=== PATIENT | male | born 1945 | race Caucasian/White ===

== ENCOUNTER → 2021-12-22 | Outpatient (CLI) | payer MEDICARE, OTHER ==
[~2021-12-22] MED LIST: ARICEPT PO; ASPI-1197 PO; CLOP75TA14 PO; CYAN1TAB14 PO; PRAV40TA3 PO; TURM500C9 PO; ZINC PO
== END | disposition home or self-care (01) ==
LOC: SHCH 11:06
PROVIDERS: ATTEND Internal Medicine Cardiovascular Disease
DX: I70.293 Other atherosclerosis of native arteries of extremities, bilateral legs (principal); E78.5 Hyperlipidemia, unspecified; Z95.828 Presence of other vascular implants and grafts
CPT/HCPCS: 93925

== ENCOUNTER → 2022-07-23 | Outpatient (CLI) | payer MEDICARE, OTHER ==
[~2022-07-23] MED LIST changes: +CLOP-31 PO; -CLOP75TA14 PO
== END | disposition home or self-care (01) ==
LOC: SHCH 11:16
PROVIDERS: ATTEND Internal Medicine Cardiovascular Disease
DX: I08.8 Other rheumatic multiple valve diseases (principal); I48.91 Unspecified atrial fibrillation; I11.9 Hypertensive heart disease without heart failure; I77.810 Thoracic aortic ectasia; E11.9 Type 2 diabetes mellitus without complications; E78.5 Hyperlipidemia, unspecified
CPT/HCPCS: 93306

== ENCOUNTER → 2022-07-29 | Outpatient (CLI) | payer MEDICARE, OTHER | END | disposition home or self-care (01) | LOC: CANSCHCLI → RAH 10:03 | PROVIDERS: ATTEND Nurse Practitioner Family | DX: R42 Dizziness and giddiness (principal); R51.9 Headache, unspecified | CPT/HCPCS: 70551 ==

== ENCOUNTER → 2022-09-08 | Outpatient (CLI) | payer MEDICARE, OTHER | END | disposition home or self-care (01) | LOC: SLP 20:28 | PROVIDERS: ATTEND Nurse Practitioner Family | DX: G47.33 Obstructive sleep apnea (adult) (pediatric) (principal) | CPT/HCPCS: 95811 ==

== ENCOUNTER 2024-04-24 14:40 | Emergency (ER) | payer MEDICARE, OTHER ==
[~2024-04-24] VITALS: Ht 175.3 cm; Wt 90.7 kg
[2024-04-24] MEDS ORDERED: ACYC200C24 PO (15:16)
[2024-04-24] MEDS ORDERED: PRED20TA3 PO (15:16)
[2024-04-24 15:21] VITALS: BP 128/87; PULSE 94; RESP 16; TEMP 98.1; O2SAT 96
== END 2024-04-24 15:41 | disposition home or self-care (01) ==
LOC: EDH 14:40
DX: B02.9 Zoster without complications (principal); E11.9 Type 2 diabetes mellitus without complications; F03.90 Unspecified dementia, unspecified severity, without behavioral disturbance, psychotic disturbance, mood disturbance, and anxiety; I10 Essential (primary) hypertension; I48.91 Unspecified atrial fibrillation; Z79.02 Long term (current) use of antithrombotics/antiplatelets; Z79.52 Long term (current) use of systemic steroids; Z79.82 Long term (current) use of aspirin; Z79.899 Other long term (current) drug therapy; Z95.1 Presence of aortocoronary bypass graft; Z98.890 Other specified postprocedural states

== ENCOUNTER 2024-05-11 10:49 | Inpatient (IN) | payer MEDICARE, OTHER ==
[~2024-05-11] VITALS: Ht 167.6 cm; Wt 86.2 kg
[~2024-05-11 10:49] MED LIST changes: +ACYC200C24 PO; +PRED20TA3 PO
--- NOTE | 2024-05-11 11:11 | ERN ---
ED Note History of Present Illness Stated Complaint: ALTERED MENTAL STATUS AND SOB Chief Complaint: Shortness of Breath Time Seen by MD: 10:55 Dictation: PATIENT IS AN 79-YEAR-OLD MALE COMING IN FROM A LOCAL CLINIC WITH THE EMS ON HIS UNABLE TO PROVIDE ANY HISTORY. PER EMS, HE HAS HAD ALTERED MENTAL STATUS FOR ALMOST A YEAR AND WAS JUST TAKEN THE CLINIC THIS MORNING BY HIS . APPARENTLY, WHEN THE EACH OF ARRIVED AT THE CLINIC THE PHYSICIAN DECIDED TO SEND HIM DIRECTLY TO THE EMERGENCY ROOM. . HE HAS NO FEVER NO CHILLS HE DOES COMPLAIN OF SHORTNESS A BREATH AND STATES I DO NOT KNOW WHY I AM HERE BECAUSE I FEEL PRETTY GOOD. PATIENT NOTED TO BE TACHYPNEIC, DENIES CHEST PAIN BACK PAIN. NO FAMILY AT BEDSIDE. Allergies: Coded Allergies: No Known Drug Allergies (Verified Allergy, Unknown, 03/01/16) Home Meds Active Scripts Acyclovir (Acyclovir) 200 Mg Capsule, 200 MG PO 5X/DAY for 5 Days, #25 CAP Prov:KIMBERLEY TIRADO MD 04/24/24 Prednisone (Prednisone) 20 Mg Tablet, 20 MG PO DAILY for 5 Days, #5 TAB Prov:KIMBERLEY TIRADO MD 04/24/24 Reported Medications [Aricept] No Conflict Check, PO 12/04/21 [Zinc] No Conflict Check, PO DAILY 12/04/21 Clopidogrel Bisulfate (Plavix) 75 Mg Tablet, 75 MG PO DAILY, TAB 12/04/21 Pravastatin Sodium (Pravastatin Sodium) 40 Mg Tablet, 40 MG PO DAILY, TAB 12/04/21 Cyanocobalamin/FA/Pyridoxine (Folbee Tablet) 1 Each Tablet, 1 EACH PO DAILY, TAB 12/04/21 Aspirin (Aspirin) 81 Mg Tab.chew, 81 MG PO DAILY, TAB.CHEW 10/13/21 Turmeric Root Extract (Turmeric) 500 Mg Capsule, 500 MG PO DAILY, CAP 10/08/21 Past Medical History Past Medical History: A-Fib, Arthritis, Dementia, Diabetes-Type II, High Cholesterol, Hypertension Surgical History: CABG, Other RN Note Reviewed/Agreed w/PFSH: Yes Review of System Dictation CONSTITUTIONAL: NEGATIVE EXCEPT FOR HPI ALTERED MENTAL STATUS HEAD/FACE: NEGATIVE EXCEPT FOR HPI EENT: NEGATIVE EXCEPT FOR HPI RESPIRATORY: NEGATIVE EXCEPT FOR HPI SHORTNESS A BREATH GASTROINTESTINAL/ABDOMINAL: NEGATIVE EXCEPT FOR HPI GENITOURINARY: NEGATIVE EXCEPT FOR HPI MUSCULOSKELETAL: NEGATIVE EXCEPT FOR HPI INTEGUMENTARY: NEGATIVE EXCEPT FOR HPI NEUROLOGICAL/PSYCH: NEGATIVE EXCEPT FOR HPI HEMATOLOGIC/LYMPHATIC: NEGATIVE EXCEPT FOR HPI ALL SYSTEMS NEGATIVE, EXCEPT NOTED ABOVE. 13 POINT REVIEW OF SYSTEMS ASSESSED AND ALL NEGATIVE EXCEPT FOR ABOVE. Initial Vital Sign VS Vital Signs Date Time Temp Pulse Resp B/P (MAP) Pulse Ox O2 Delivery O2 Flow Rate FiO2 05/11/24 10:51 97.7 120 22 165/106 99 Room Air 0 05/11/24 11:21 21 Physical Exam Dictation VITAL SIGNS REVIEWED GENERAL APPEARANCE: ALERT, ORIENTED X 1PATIENT IS ALERT URINARY TO HIMSELF IN HIS POOR HISTORIAN IS THE PRINCIPAL HISTORIAN. HEAD AND FACE: NON-TRAUMATIC. EYES: PERRL, PINK CONJUNCTIVAS, EYELID NO TRAUMA, ANTERIOR CHAMBER WITH ARCUS SENILIS. EARS: PINNAS INTACT AND NO SIGNS OF TRAUMA OR ERYTHEMA EAR CANALS CLEAR AND NO DISCHARGE TM NO ERYTHEMA NOSE: NO DISCHARGE, NO BLEEDING. OROPHARYNX: MOUTH NORMAL, TONGUE PINK, PHARYNX CLEAR,NO ERYTHEMA, TONSILS NO EXUDATES, NO ABSCESSES NOTED, MUCOUS MEMBRANE MOIST NECK: SUPPLE, NON-TENDER, NO THYROMEGALY, NO MASSES, NO JVD, NO BRUITS BREAST:DEFERRED CHEST:NO TENDERNESS, NO CREPITUS, NO PARADOXICAL MOVEMENT, NO RETRACTIONS LUNGS:CLEAR, WELL-VENTILATED, SYMMETRIC, NO RALES, NO WHEEZING, NO RHONCHI, NO STRIDOR, MILD TACHYPNEA NOTED WITHOUT RETRACTIONS, BILATERAL BREATH SOUNDS CLEAR DIMINISHED IN THE BASES. HEART: REGULAR RATE, REGULAR RHYTHM, NO MURMUR, NO GALLOPS VASCULAR: NO PERIPHERAL EDEMA, ABDOMEN: SOFT, POSITIVE BOWEL SOUNDS, NONDISTENDED, NO GUARDING, NONTENDER, NO REBOUND, NO MASSES NO HEPATOMEGALY, NO SPLENOMEGALY, NO NELSON'S SIGN, NO HERNIAS. RECTAL: DEFERRED GENITAL: DEFERRED NEUROLOGICAL: NORMAL SPEECH, MOTOR FUNCTION INTACT, SENSORY FUNCTION INTACT MUSCULOSKELETAL: NECK NONTENDER, FULL RANGE OF MOTION, BACK NONTENDER, FULL RANGE OF MOTION, EXTREMITIES: NONTENDER, FULL RANGE OF MOTION SKIN: COLOR PINK, DRY, NO TURGOR, NO RASH, NO LACERATIONS, NO ABRASIONS, NO CONTUSIONS. LYMPHATIC: DEFERRED Results (Laboratory/Radiology) Laboratory/Radiology Laboratory Tests Test 05/11/24 11:11 05/11/24 11:13 05/11/24 11:35 White Blood Count 9.7 K/uL (4.8-10.8) Red Blood Count 5.39 MIL/uL (4.50-6.20) Hemoglobin 16.1 g/dL (14.0-18.0) Hematocrit 47.6 % (42-54) Mean Corpuscular Volume 88.3 fL (79-99) Mean Corpuscular Hemoglobin 29.9 pg (27.0-33.0) Mean Corpuscular Hemoglobin Concent 33.8 g/dL (32.0-36.0) Red Cell Distribution Width 13.1 % (11.0-15.5) Platelet Count 258 K/uL (130-400) Mean Platelet Volume 9.3 fL (7.5-10.5) Immature Granulocyte % (Auto) 0.3 % (0-1) Neutrophils (%) (Auto) 71.6 % (40.0-77.0) Lymphocytes (%) (Auto) 19.9 % (21.0-51.0) L Monocytes (%) (Auto) 6.2 % (3.0-13.0) Eosinophils (%) (Auto) 1.5 % (0.0-8.0) Basophils (%) (Auto) 0.5 % (0.0-5.0) Neutrophils # (Auto) 6.9 K/uL (1.8-7.7) Lymphocytes # (Auto) 1.9 K/uL (1.0-4.8) Monocytes # (Auto) 0.6 K/uL (0.1-1.0) Eosinophils # (Auto) 0.14 K/uL (0.00-0.70) Basophils # (Auto) 0.05 K/uL (0.00-0.20) Absolute Immature Granulocyte (auto 0.03 K/uL (0-1) Nucleated Red Blood Cells 0.0 % (0.0-0.19) Sodium Level 140 mmol/L (136-145) Potassium Level 3.8 mmol/L (3.5-5.1) Chloride Level 102 mmol/L (101-111) Carbon Dioxide Level 26 mmol/L (21-32) Blood Urea Nitrogen 14 mg/dL (7-18) Creatinine 1.2 mg/dL (0.5-1.3) Glomerular Filtration Rate Calc 61 mL/min (>90) Random Glucose 185 mg/dL (70-105) H Lactic Acid Level 3.6 mmol/L (0.8-2.5) H Total Calcium 9.2 mg/dL (8.5-10.1) Total Creatine Kinase 128 U/L (21-232) Troponin I High Sensitivity 34 ng/L (4-75) SARS-CoV-2 Antigen (Rapid) PRESUMPTIVE NEGATIVE Urine Color YELLOW (YELLOW) Urine Appearance CLEAR (CLEAR) Urine pH 7.0 (5.0-8.0) Urine Specific [place] 1.027 (1.001-1.031) Urine Protein 20 mg/dL (NEGATIVE) H Urine Glucose (UA) TRACE mg/dL (NEGATIVE) H Urine Ketones 60 mg/dL (NEGATIVE) H Urine Occult Blood NEGATIVE (NEGATIVE) Urine Nitrate NEGATIVE (NEGATIVE) Urine Bilirubin NEGATIVE mg/dL (NEGATIVE) Urine Urobilinogen 4.0 mg/dL (0.2-1.0) H Urine Leukocyte Esterase NEGATIVE [place]/uL Urine RBC 2-5 /HPF (0-1) H Urine WBC 0-1 /HPF (0-1) Urine Bacteria None /HPF (None Seen) REASON: ALTERED MENTAL STATUS, EIGHT MONTH RULE OUT LESION/MASS ORDERING PHYSICIAN: PERLA TRUONG NP PROCEDURE: HEAD WO - CT HEAD/BRAIN W/O CONTRAST CT HEAD/BRAIN W/O CONTRAST HISTORY: Altered mental status COMPARISON: None TECHNIQUE: Multiple sequential axial images of the head were obtained from the base of the skull through vertex. Patient was not given contrast through intravenous route. FINDINGS: The ventricles and extraventricular CSF spaces are dilated consistent with cerebral atrophy. Nonspecific white matter changes seen. There is no midline shift, mass effect or herniation. No acute intracranial bleed is seen. Visualized portion of the paranasal sinuses are grossly within normal limits. 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 IMPRESSION: 1. No acute intracranial bleed is seen. 2. Atrophy with white matter changes. CHEST 1VW HISTORY: Shortness of breath COMPARISON: 05/03/2024 FINDINGS: A frontal projection of the chest was obtained. Mild bilateral pulmonary infiltrates are seen may be related to mild pulmonary vascular congestion with possible superimposed pneumonitis. The heart is borderline enlarged. Degenerative changes are seen. No evidence of aortic calcification is seen. IMPRESSION: 1. Mild bilateral pulmonary infiltrates are seen may be related to mild pulmonary vascular congestion with possible superimposed pneumonitis. Labs Reviewed?: Yes EKG Comment: EKG IS ATRIAL FIBRILLATION VENTRICULAR RATE 89 NO AXIS DEVIATION ED Course ED Course Orders Procedure Category Date Status Time Iv Insertion CPOE 05/11/24 Transmitted 10:56 Pulse Ox(Continuous) RT 05/11/24 Transmitted 10:56 Vital Signs Per CPOE 05/11/24 Transmitted Routine 10:56 12 Lead Ekg Tracing- EKG 05/11/24 Logged Technical 10:56 Cbc With Differential LAB 05/11/24 Complete 10:56 Blood Cult QUIANA 05/11/24 In Process 10:56 Urinalysis Profile LAB 05/11/24 Complete 10:56 Culture Urine QUIANA 05/11/24 In Process 10:56 Creatine Kinase, Total LAB 05/11/24 Complete 10:56 Troponin I High LAB 05/11/24 Complete Sensitivity 10:56 Lactic Acid LAB 05/11/24 Complete 10:56 Basic Metabolic Panel LAB 05/11/24 Complete 10:56 Covid19 (Sars Antigen LAB 05/11/24 Complete Rapid) 11:08 Ct Head/Brain W/O CT 05/11/24 Resulted Contrast 11:16 Bladder Scan CPOE 05/11/24 Transmitted 11:57 0.9%Nacl 1000ml (Ns PHA 05/11/24 In Process 1000ml) 12:30 Ceftriaxone 2gm Vial PHA 05/11/24 Complete (Rocephin 2gm Inj) 12:30 Chest 1vw RAD 05/11/24 Resulted 12:42 Azithromycin 500mg+Ns PHA 05/11/24 Complete 250ml (Azithromyci 13:30 Albuterol 0.083% PHA 05/11/24 Complete 2.5mg/3ml (Proventil 14:00 Azithromycin 500mg+Ns PHA 05/11/24 In Process 250ml (Azithromyci 14:00 Current Medications Medications (Trade) Dose Ordered Sig/Rere Route PRN Reason Start Time Stop Time Status Last Admin Dose Admin Albuterol Sulfate (Proventil 0.083% 2.5mg/3ml) 2.5 mg ONCE ONCE IH 05/11/24 14:00 05/11/24 14:01 DC 05/11/24 13:56 Azithromycin 250 ml @ 250 mls/hr ONCE ONCE IVPB 05/11/24 14:00 05/11/24 14:59 05/11/24 13:50 Azithromycin 250 ml @ 250 mls/hr Q24H IVPB 05/11/24 13:30 05/11/24 13:39 DC Ceftriaxone Sodium (Rocephin 2gm Inj) 2 gm ONCE ONCE IVPB 05/11/24 12:30 05/11/24 12:31 DC 05/11/24 12:56 Sodium Chloride 2,682 ml @ 894 mls/hr ONCE ONCE IV 05/11/24 12:30 05/11/24 15:29 05/11/24 12:56 Vital Signs Date Time Temp Pulse Resp B/P (MAP) Pulse Ox O2 Delivery O2 Flow Rate FiO2 05/11/24 13:56 95 20 05/11/24 11:21 102 20 168/74 100 Room Air* 0 21 05/11/24 10:51 97.7 120 22 165/106 99 Room Air 0 ELEVEN 30, PATIENT'S AT BEDSIDE AND STATES THAT PATIENT HAS NOT BEEN GOING TO HIS DOCTOR FOR OVER A YEAR ACCEPT WHEN HE HAD SHINGLES TWO WEEKS AGO. SHE ST ATES HE ALSO QUIT TAKING HIS DIABETIC MEDICATIONS, ARICEPT HYPERTENSION ETC. MEDICATIONS A YEAR AND A HALF AGO. SHE STATES HE HAS BEEN ACTING VERY ERRATICALLY, SOLD A TRUCK THAT THEY OWNED WITHOUT CONSULTING HER HAS BEEN NOT ABLE TO URINATE FREQUENTLY AND HAS BEEN ACTING VERY STRANGE NOT RECOGNIZING HER, NOT RECOGNIZE WHERE HE LIVES. SHE STATES HE HAS HAD NO FEVER NO CHILLS LAST KNOWN BLOOD SUGAR WAS 198. 1335, PATIENT HEMODYNAMICALLY STABLE WAS GIVEN NORMAL SALINE 30 PER KILOS FOR LACTIC ACID 3.6. PATIENT HAS BILATERAL PNEUMONITIS WAS GIVEN ROCEPHIN2 G AND WE WILL BE GIVEN AZITHROMYCIN 500 MG. IN ADDITION HE WILL BE ADMITTED TO THE HOSPITAL. CT OF THE HEAD WAS NEGATIVE FOURTEEN 30 SPOKE WITH , REVIEWED CHEST X-RAY EKG LABS URINE AND TREATMENT FOR LACTIC ACID 3.6. HE AGREED TO ADMIT PATIENT FOR OBSERVATION AT THIS TIME AND WE WILL SEE PATIENT HEART Score Response (Comments) Value EKG: Repolarization changes 1 Age: > 65yrs (+2) 2 Risk Factors: 3+ risk factors (+2) 2 Initial Troponin: Normal limit (0) 0 Total 5 Medical Decision Making MDM MDM: DIFFERENTIAL DIAGNOSIS: ALTERED MENTAL STATUS/NEURO LESION/UTI/PNEUMONIA/HYPOXEMIA/DEHYDRATION/ELECTROLYTE IMBALANCE/UNCONTROLLED DIABETES/MEDICAL NONCOMPLIANCE RATIONALE: TESTS CONSIDERED AND ORDERED SECONDARY TO SHARED DECISION MAKING INCLUDE: LABS, ECG AND RADIOLOGY PREVIOUS OUTSIDE RECORDS REVIEWED: OLD ER VISITS. REVIEW MEDICATIONS-PER MEDICATION RECONCILIATION SEE NURSE'S NOTES NEED FOR HOSPITALIZATION: PATIENT DOES MEET CRITERIA FOR HOSPITALIZATION. PATIENT WILL NEED TREATMENT FOR BILATERAL PNEUMONITIS AND SEPSIS. RESPIRATORY SUPPORT NEED FOR EMERGENCY MAJOR/MINOR SURGERY: NO THERE ARE NO SOCIAL CONCERNS WITH THIS PATIENT. PATIENT NONCOMPLIANT WITH MEDICATIONS AND TREATMENTS PRESCRIPTION DRUG MANAGEMENT PRESCRIPTIONS WILL INCLUDE SYMPTOMATIC CARE PATIENT'S PRIOR EXTERNAL MEDICAL RECORDS FROM OTHER ER VISITS WERE REVIEWED BY ME INDICATED. PRIOR TESTING AND RESULTS FROM PREVIOUS VISITS WERE REVIEWED. PRIOR TESTS WERE TAKEN INTO ACCOUNT WITH MEDICAL DECISION MAKING AND RESOURCE UTILIZATION, INDEPENDENT HISTORIAN/HISTORIANS WERE USED TO OBTAIN COMPLETE MEDICAL HISTORY. I INDEPENDENTLY INTERPRETED THE TEST THAT WERE PERFORMED, RESULTS WERE REVIEWED BY ME AND CONSIDERED FINDINGS ON RADIOLOGY IF ORDERED. MEDICAL MANAGEMENT AND EXAMINATION INTERPRETATION DISCUSSIONS WERE HAD BY ME WITH OTHER QUALIFIED HEALTHCARE PROFESSIONALS INDICATED FOR THE PATIENT'S CARE. DX & DISP Disposition: Inpatient Departure Impression: Primary Impression: Bilateral pneumonia Additional Impressions: Altered mental status, Uncontrolled diabetes mellitus, Medical non-compliance, Dementia, Sepsis, Atrial fibrillation with controlled ventricular response Condition: Stable Referrals: AZUCENA WILKINS (PCP) Time of Disposition: 13:39 I have reviewed the case, and I agree with, Diagnosis and Plan PERLA TRUONG NP May 11, 2024 11:11
[2024-05-11 11:24] LABS: BASOPHILS # (AUTO) 0.05 K/uL (0.00-0.20); BASOPHILS % (AUTO) 0.5 % (0.0-5.0); EOSINOPHILS # (AUTO) 0.14 K/uL (0.00-0.70); EOSINOPHILS % (AUTO) 1.5 % (0.0-8.0); HEMATOCRIT 47.6 % (42-54); IMMATURE GRANULOCYTE ABSOLUTE 0.03 K/uL (0-1); LYMPHOCYTES # (AUTO) 1.9 K/uL (1.0-4.8); LYMPHOCYTES % (AUTO) 19.9 % (21.0-51.0); MEAN CORPUSCULAR HEMOGLOBIN 29.9 pg (27.0-33.0); MEAN CORPUSCULAR HGB CONC 33.8 g/dL (32.0-36.0); MEAN CORPUSCULAR VOLUME 88.3 fL (79-99); MONOCYTES # (AUTO) 0.6 K/uL (0.1-1.0); MONOCYTES % (AUTO) 6.2 % (3.0-13.0); NEUTROPHILS # (AUTO) 6.9 K/uL (1.8-7.7); NEUTROPHILS % (AUTO) 71.6 % (40.0-77.0); PLATELET COUNT (AUTO) 258 K/uL (130-400); RED BLOOD CELL COUNT(AUTO) 5.39 MIL/uL (4.50-6.20); RED CELL DISTRIBUTION WIDTH 13.1 % (11.0-15.5); WHITE BLOOD COUNT (AUTO) 9.7 K/uL (4.8-10.8)
[2024-05-11 11:30] LABS: CREATININE 1.2 mg/dL (0.5-1.3); POTASSIUM 3.8 mmol/L (3.5-5.1)
[2024-05-11 11:56] LABS: APPEARANCE,URINE CLEAR (CLEAR); BILIRUBIN,URINE NEGATIVE (NEGATIVE); COLOR,URINE YELLOW (YELLOW); GLUCOSE, URINE (UA) TRACE mg/dL (NEGATIVE); KETONES,URINE 60 mg/dL (NEGATIVE); LEUKOCYTE ESTERASE ,URINE NEGATIVE Leu/uL (NEGATIVE); NITRATE,URINE NEGATIVE (NEGATIVE); OCCULT BLOOD,URINE NEGATIVE (NEGATIVE); PROTEIN,URINE 20 mg/dL (NEGATIVE)
[2024-05-11 12:04] LABS: ADD UA MICROSCOPIC YES
[2024-05-11 12:15] LABS: MUCUS,URINE RARE LPF (None Seen); WBC,URINE 0-1 /HPF (0-1)
--- NOTE | 2024-05-11 12:38 | HMCIMG ---
CT HEAD/BRAIN W/O CONTRAST HISTORY: Altered mental status COMPARISON: None TECHNIQUE: Multiple sequential axial images of the head were obtained from the base of the skull through vertex. Patient was not given contrast through intravenous route. FINDINGS: The ventricles and extraventricular CSF spaces are dilated consistent with cerebral atrophy. Nonspecific white matter changes seen. There is no midline shift, mass effect or herniation. No acute intracranial bleed is seen. Visualized portion of the paranasal sinuses are grossly within normal limits. 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 IMPRESSION: 1. No acute intracranial bleed is seen. 2. Atrophy with white matter changes. CT was performed with one or more following dose reduction techniques: automated exposure control, adjustment of the mA and kv according to patient's size, or use of a iterative reconstruction technique.
[2024-05-11] MEDS: CEFTRIAXONE 2GM VIAL IVPB ONE (12:56)
[2024-05-11] MEDS: [UNRECOGNIZED DRUG - OTHER] IV ONE (12:56)
[2024-05-11] MEDS ORDERED: AZITHROMYCIN 500MG+NS 250ML 250 ML IVPB SCH (13:30)
--- NOTE | 2024-05-11 13:33 | HMCIMG ---
CHEST 1VW HISTORY: Shortness of breath COMPARISON: 12/04/2021 FINDINGS: A frontal projection of the chest was obtained. No acute pulmonary infiltrates is seen. Poststernotomy changes are seen. The heart is enlarged. Degenerative changes of the thoracolumbar spine are present. Aortic calcifications are seen. IMPRESSION: 1. No acute pulmonary infiltrate is seen.
[2024-05-11] MEDS: AZITHROMYCIN 500MG+NS 250ML 250 ML IVPB ONE (13:49)
[2024-05-11 13:56] VITALS: PULSE 95; RESP 20
[2024-05-11] MEDS: ALBUTEROL 0.083% 2.5 MG/3 ML INH IH ONE (13:56)
--- NOTE | 2024-05-11 15:06 | BSKYNEURO ---
[facility] Procedure Note [facility] Consult Consult [facility] Note # Demographics Consult Type: General Neurology Patient Location: Emergency Room First Name: NAVI Malagon Last Name: SAIMA HAQ Date of : 1945 Age: 79 Gender: Male Facility: [facility] Time of Initial Page (Central Time): 05/11/2024, 14:56 Time of Return Call (Central Time): 05/11/2024, 14:56 # HPI History: COnfusion and worse ams x 2-3 months. Progressive dementia last few eeks/months. No neck stiffness or fevers reported. No seizures. Afib, not on noac # Scores Level of Consciousness 1a: [0] = Alert; keenly responsive LOC Questions 1b: [1] = Answers one correctly LOC Commands 1c: [0] = Performs both tasks correctly Best Gaze 2: [0] = Normal Visual 3: [0] = No visual loss Facial Palsy 4: [0] = Normal symmetrical movements Motor Arm Left 5a: [0] = No drift Motor Arm Right 5b: [0] = No drift Motor Leg Left 6a: [0] = No drift Motor Leg Right 6b: [0] = No drift Limb Ataxia 7: [0] = Absent Sensory 8: [0] = Normal Best Language 9: [0] = No aphasia Dysarthria 10: [0] = Normal Extinction and Inattention 11: [0] = No abnormality NIHSS Total: 1 # Data Head CT: - no bleed - per radiologist read # Assessment Impression: - Altered Mental Status STart with mri brain wwo and toxometabolic/infectious workup. If no etiology identified then consider LP - to investigate infections or inflammatory picture or other causes of rapidly progressive dementia # Plan Labs: - Ammonia - B12 - TSH - ua - urine drug screen tpo antibody Imaging: (urgency: routine): - MRI Brain with AND without contrast Diagnostic Test: - EEG Other: - If patient has any neurological deterioration please call me back immediately - I have discussed my recommendations with the referring provider - would not pursue stroke work-up if MRI is negative # Logistics Attestation of consult completion: The patient is located at: [facility]. Facility staff participated in the visit. I performed this telemedicine visit from my offsite office utilizing interactive 2 way audio and visual telecommunication technology. Total time spent in telemedicine encounter: I spent 21 minutes reviewing clinical data and/or imaging, obtaining history, examining the patient, communicating with the onsite care team, and in preparation of this report. # Demographics First Name: NAVI Malagon Last Name: SAIMA HAQ Facility: [facility] Electronically signed at 05/11/2024 15:05 (Central Time) by Daniel Barbosa MD Neuro Consult Order placed for: Yes VINCENZO BARBOSA MD May 11, 2024 15:06
--- NOTE | 2024-05-11 15:18 | HP ---
[facility] HISTORY [facility] PHYSICAL Date of Service: May 11, 2024 Time of Service: 15:18 HISTORY OF PRESENT ILLNESS: DATE OF SERVICE: 05/11/2024 This 79-year-old male with past medical history of dementia, history of atrial fibrillation, hypertension, hyperlipidemia who presented to the hospital secondary to shortness of breath and confusion. Patient is alert oriented x2 and his is present at bedside. Per patient was diagnosed with dementia more than a year ago. She has noted increasing confusion at home for the past 2-3 weeks. has also noted increasing shortness a breath with associated cough and sputum production patient currently has not been taking any medications and currently is not taking Eliquis at home. He sees Dr. Cannon who is his primary care physician. She also sees Dr. Edge who is his primary florist. Patient was going to follow up with him for possible aneurysm repair in the future. He currently denies any fever but complains of chills. He denied any chest pain, syncopal episode. Does complain of abdominal pain which is generalized. He is having regular bowel movements with last BM today. He denied any melena, hematochezia, hematemesis. Secondary to increasing confusion patient was brought to the ER for further evaluation. Patient recently was diagnosed with shingles around two weeks ago and was on acyclovir for treatment Labs in the ED were notable for white count of 9.7, hemoglobin was 16.1, platelet count was 258 K, sodium was 140, potassium was 3.8, creatinine is 1.2, lactic acid was 3.6, troponin was negative x1, BNP was 91 Chest x-ray did not show any acute infiltrates. REVIEW OF SYSTEMS CONSTITUTIONAL: Denies fevers, or night sweats. No unintentional weight loss reported. Positive for chills NEUROLOGICAL: Denies headache, amaurosis fugax, motor weakness, sensory deficit, vertigo/spinning sensation, gait abnormalities, or tremors. ENT: No hearing loss, otalgia, otorrhea, rhinitis, rhinorrhea, hoarseness, or sore throat. CARDIOVASCULAR: Denies any exertional angina, dyspnea on exertion, orthopnea, paroxysmal nocturnal dyspnea, palpitations, life-threatening arrhythmias, claudication. PULMONARY: Positive for shortness of breath, cough, sputum production SLEEP: Denies morning headaches, daytime somnolence or napping. Denies difficulty falling asleep, staying asleep, waking from sleep. Denies knowledge of snoring. GASTROINTESTINAL: Positive for abdominal pain. Denied any nausea, vomiting, melena, hematochezia, hematemesis. GENITOURINARY: Denies frequency, urgency, nocturia, hematuria or incontinence (Storage/Irritative symptoms.) Low urinary stream, straining to void, urinary intermittency or hesitancy, splitting of the voiding stream, terminal dribbling. ENDOCRINOLOGIC: Denies polyuria, polydipsia, polyphagia or heat/cold intolerances. HEMATOLOGIC: Denies thrombophilia/previous clots, or coagulopathy/bleeding disorders. ONCOLOGIC: Denies personal history of malignancy. DERMATOLOGIC: Denies rashes or pruritus. PSYCHIATRIC: Denies any suicidal or homicidal ideation. Denies hallucinations. PAST MEDICAL HISTORY: Dementia, history of atrial fibrillation, hypertension, hyperlipidemia (not taking any medications) PAST SURGICAL HISTORY: History of CABG PAST SOCIAL HISTORY: Denied smoking, alcohol, drug use FAMILY HISTORY: Denied any pertinent family history Coded Allergies: No Known Drug Allergies (Verified Allergy, Unknown, 03/01/16) PHYSICAL EXAM GENERAL APPEARANCE: The patient is awake, alert, and oriented, in no acute cardiopulmonary distress. NEUROLOGICAL: Cranial nerves II-XII grossly intact. Motor is 5/5 in bilateral upper and lower extremities proximal to distal. No sensory deficits. HEENT: Face is symmetric. Pupils are equal and reactive. Extraocular movements are intact. NECK: Supple. No JVD. No thyromegaly. No submental, submandibular, pre- /postauricular, occipital or supraclavicular lymphadenopathy. CHEST: Normal chest expansion. No Telemetry. LUNGS: Absence of any rales, rhonchi or any wheezing. CARDIOVASCULAR: Regular. S1 and S2 normal. No appreciable rubs, murmurs or gallops. ABDOMEN: Soft, nontender, and nondistended. There is no rebound, voluntary guarding, or rigidity. : Deferred. No [place]. EXTREMITIES: Non-edematous and not cyanotic. No clubbing. Good capillary refill. SKIN: No skin breakdown. Vital Sign (Last 24 Hours) 05/11/24 05/11/24 05/11/24 10:51 11:21 13:56 Temp 97.7 Pulse 95 Resp 20 B/P (MAP) 168/74 Pulse Ox 100 O2 Delivery Room Air* O2 Flow Rate 0 FiO2 21 LABS: Laboratory: Test 05/11/24 11:35 05/11/24 11:13 05/11/24 11:11 Range/Units Urine Color YELLOW YELLOW Urine Appearance CLEAR CLEAR Urine pH 7.0 5.0-8.0 Urine Specific [place] 1.027 1.001-1.031 Urine Protein 20 H NEGATIVE mg/dL Urine Glucose (UA) TRACE H NEGATIVE mg/dL Urine Ketones 60 H NEGATIVE mg/dL Urine Occult Blood NEGATIVE NEGATIVE Urine Nitrate NEGATIVE NEGATIVE Urine Bilirubin NEGATIVE NEGATIVE mg/dL Urine Urobilinogen 4.0 H 0.2-1.0 mg/dL Urine Leukocyte Esterase NEGATIVE NEGATIVE [place]/uL Urine RBC 2-5 H 0-1 /HPF Urine WBC 0-1 0-1 /HPF Urine Bacteria None None Seen /HPF SARS-CoV-2 Antigen (Rapid) PRESUMPTIVE NEGATIVE NEGATIVE White Blood Count 9.7 4.8-10.8 K/uL Red Blood Count 5.39 4.50-6.20 MIL/uL Hemoglobin 16.1 14.0-18.0 g/dL Hematocrit 47.6 42-54 % Mean Corpuscular Volume 88.3 79-99 fL Mean Corpuscular Hemoglobin 29.9 27.0-33.0 pg Mean Corpuscular Hemoglobin Concent 33.8 32.0-36.0 g/dL Red Cell Distribution Width 13.1 11.0-15.5 % Platelet Count 258 130-400 K/uL Mean Platelet Volume 9.3 7.5-10.5 fL Immature Granulocyte % (Auto) 0.3 0-1 % Neutrophils (%) (Auto) 71.6 40.0-77.0 % Lymphocytes (%) (Auto) 19.9 L 21.0-51.0 % Monocytes (%) (Auto) 6.2 3.0-13.0 % Eosinophils (%) (Auto) 1.5 0.0-8.0 % Basophils (%) (Auto) 0.5 0.0-5.0 % Neutrophils # (Auto) 6.9 1.8-7.7 K/uL Lymphocytes # (Auto) 1.9 1.0-4.8 K/uL Monocytes # (Auto) 0.6 0.1-1.0 K/uL Eosinophils # (Auto) 0.14 0.00-0.70 K/uL Basophils # (Auto) 0.05 0.00-0.20 K/uL Absolute Immature Granulocyte (auto 0.03 0-1 K/uL Nucleated Red Blood Cells 0.0 0.0-0.19 % Sodium Level 140 136-145 mmol/L Potassium Level 3.8 3.5-5.1 mmol/L Chloride Level 102 101-111 mmol/L Carbon Dioxide Level 26 21-32 mmol/L Blood Urea Nitrogen 14 7-18 mg/dL Creatinine 1.2 0.5-1.3 mg/dL Glomerular Filtration Rate Calc 61 >90 mL/min Random Glucose 185 H 70-105 mg/dL Lactic Acid Level 3.6 H 0.8-2.5 mmol/L Total Calcium 9.2 8.5-10.1 mg/dL Total Creatine Kinase 128 21-232 U/L Troponin I High Sensitivity 34 4-75 ng/L Current Medications Medications (Trade) Dose Ordered Sig/Rere Route PRN Reason Start Time Stop Time Status Last Admin Dose Admin Acetaminophen (TYLenol 500MG TAB) 500 mg Q6H PRN PO MILD PAIN (1-3) 05/11/24 15:30 06/10/24 15:29 Albuterol (DUOneb) 1 UDVIAL Q6H PRN IH SHORTNESS OF BREATH 05/11/24 15:30 06/10/24 15:29 Azithromycin 250 ml @ 250 mls/hr Q24H IVPB 05/11/24 13:30 05/11/24 13:39 DC Ceftriaxone Sodium (Rocephin 2gm Inj) 2 gm Q24H IVPB 05/12/24 09:00 05/22/24 08:59 Famotidine (Pepcid 20mg Vial) 20 mg Q24H IV 05/11/24 21:00 06/10/24 20:59 Sodium Chloride 1,000 ml @ 75 mls/hr [id number] IV 05/11/24 15:30 06/10/24 15:29 DIAGNOSTICS / RADIOLOGY: [ ] ASSESSMENT: AMS secondary to infectious versus metabolic encephalopathy Dementia Possible sepsis rule out Lactic acidosis Community-acquired pneumonia versus URI rule out Respiratory alkalosis Medical noncompliance History of atrial fibrillation not on anticoagulation Hypertension not on medications Hyperlipidemia not on medications History of aneurysm PLAN: - patient to be admitted to medical-surgical unit with telemetry -in reference to AMS with associated dementia. We will request consultation with tele neurology. We will check b12, TSH. Additionally patient has not been taking Eliquis. We will obtain a brain MRI. -reference to possible sepsis. Patient will continue on Rocephin and azithromycin. We will obtain a CT abdomen pelvis. Obtain a UA and follow up on blood cultures -in trends to respiratory alkalosis this is likely in setting of his underlying dementia. We will request consultation with pulmonology -patient to be started on gentle hydration -start patient on metoprolol 25 mg b.i.d. -further orders per hospitalization course. Advanced Care Planning Which of the following were discussed: Hospice care: Yes __ No _x_ Therapeutic options: Yes __ No __ Advance directives: Yes _x_ No __ Other discussions: Patient has advanced directives for DNR/DNI. Code status was discussed with patient and patient's power of director of product design who is his . Patient and have decided on DNR/DNI. Paperwork was signed by patient's POA. Discussed with who?: patient and (Patient, family or surrogates) Voluntary nature of this service was explained to the patient? Yes _x_ No __ Amount of time spent: 25 minutes ZAKI Nieto MD, MD May 11, 2024 15:18
[2024-05-11] MEDS ORDERED: IpraTROPium/alBUTERol SULFATE 3 ML SOLUTION IH PRN (15:30)
[2024-05-11] MEDS: 0.9%NACL 1000ML 1,000 ML IV SCH (15:38)
[2024-05-11] MEDS: LORazepam 0.5 MG TABLET PO ONE (15:40)
[2024-05-11 15:48] LABS: INFLUENZA TYPE A Negative For Type A (NEGATIVE); INFLUENZA TYPE B Negative For Type B (NEGATIVE)
[2024-05-11 15:57] LABS: ABG BASE EXCESS -1.3 mmol/L (-2.0-3.0); ABG HCO3 16.9 mmol/L (21.0-28.0); ABG OXYGEN SATURATION 98.4 % (94.0-98.0); ABG PCO2 17 mmHg (35-48); ABG PH 7.606 (7.350-7.450); CARBON MONOXIDE 0.2 % (0.5-1.5); HHb 1.6; PO2, ARTERIAL BG 104.2 mmHg (83.0-108.0); VENT MODE, BG RA (ROOM AIR)
--- NOTE | 2024-05-11 16:32 | HMCIMG ---
CT ABDOMEN/PELVIS W/O CONTRAST HISTORY: Abdominal pain COMPARISON: None TECHNIQUE: Multiple sequential axial images of the abdomen and pelvis were obtained from the dome of the diaphragm through symphysis pubis. Patient was not given contrast through intravenous route. Oral contrast was not given. FINDINGS: No pleural effusion is seen bilaterally. There is no evidence of parenchymal disease or pulmonary nodule of the visualized lower lungs. Degenerative changes of the thoracolumbar spine are present. The heart is not enlarged. Liver is enlarged measuring 18 cm. Gallbladder is distended. There are multiple left renal cysts with the largest measuring 5 cm. The liver, spleen, adrenal glands and pancreas are unremarkable. There is no evidence of hydronephrosis bilaterally. No evidence of renal stone is seen. There is diverticulosis. Fecal material is seen in the colon. There is diverticulosis. There are normal size retroperitoneal and mesenteric lymph nodes. No ascites is seen. Atherosclerotic changes are present. Pelvic sidewalls are symmetric bilaterally. Bladder is poorly distended with wall thickening. IMPRESSION: 1. Distended gallbladder. Multiple renal cysts mostly on the left. Diverticulosis. CT was performed with one or more following dose reduction techniques: automated exposure control, adjustment of the mA and kv according to patient's size, or use of a iterative reconstruction technique.
[2024-05-11] MEDS: HALOPERIDOL INJ 5 MG/ML VIAL ONE (17:27)
[2024-05-11] MEDS: HALOPERIDOL INJ 5 MG/ML VIAL IM SCH (17:27)
[2024-05-11] MEDS: SODIUM CHLORIDE 3% FOR INHALATION 4 ML/AMP VIAL.NEB IH ONE (18:26)
--- NOTE | 2024-05-11 19:14 | HMCIMG ---
ULTRASOUND ABDOMEN LIMITED INDICATION: Right upper abdominal pain COMPARISON: None FINDINGS: The right hepatic lobe appears grossly normal without any focal lesion demonstrated. Left hepatic lobe is obscured by overlying bowel gas. Main portal vein is patent, and normal direction of vascular flow demonstrated. Common bile duct is obscured by overlying bowel gas. No evidence for calculi, sludge or pericholecystic fluid. No sonographic Zhang's sign elicited by the ultrasound flaker operator. Wall thickness measures 3.0 mm. Pancreas is obscured by overlying bowel gas. The right kidney measures 10.2 x 6.4 x 5.0 cm,and is normal in echogenicity, without evidence for hydronephrosis.No shadowing stones demonstrated. No free fluid demonstrated. IMPRESSION: Limitations as reported. No acute right upper abdominal abnormality noted within the limits of this exam.
--- NOTE | 2024-05-11 19:27 | CONS ---
[facility] CONSULTATION NOTE Date Patient Seen: May 11, 2024 Time of Visit: 19:27 Supervising Physician: Dr. Cooley Reason for Consultation: "Respiratory alkalosis" Primary Care Physician: Ravi Cannon Attending providers: [facility] Hospitalist Team Outpatient Specialists: Dr. Edge, clinical systems analyst. 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 Schuler is a 79-year-old male with past medical history of dementia, history of atrial fibrillation, hypertension, hyperlipidemia who presented to the hospital secondary to shortness of breath and worsening confusion over the past 2-3 weeks. Patient is alert oriented x2. Per patient was diagnosed with dementia more than a year ago. has also noted increasing shortness a breath with associated cough and sputum production. The patient currently has not been taking any medications and currently is not taking Eliquis at home. The patient reports chills. The patient denied any fever,chest pain, syncopal episode, abdominal pain which is generalized. He is having regular bowel movements with last BM today. He denied any melena, hematochezia, hematemesis. Secondary to increasing confusion patient was brought to the ER for further evaluation. Patient recently was diagnosed with shingles around two weeks ago and was on acyclovir for treatment Labs in the ED were notable for white count of 9.7, hemoglobin was 16.1, platelet count was 258 K, sodium was 140, potassium was 3.8, creatinine is 1.2, lactic acid was 3.6, troponin was negative x1, BNP was 91. Chest x-ray did not show any acute infiltrates. CT chest PE protocol: Negative for PE. Degener ative changes of the spine. Fatty changes of the liver are noted. Gallbladder is distended. There are left renal cysts with the largest measuring 4.3 cm. The provider request patient be admitted with the diagnosis of altered mental status, Uncontrolled diabetes mellitus, Medical non-compliance, Dementia, Sepsis, Atrial fibrillation with controlled ventricular response. The catalyst admitted this team with BI team as pulmonary consults for respiratory alkalosis. PAST MEDICAL HISTORY: Dementia, history of atrial fibrillation, hypertension, hyperlipidemia (not taking any medications) PAST SURGICAL HISTORY: History of CABG PAST SOCIAL HISTORY: Denied smoking, alcohol, drug use FAMILY HISTORY: Denied any pertinent family history Coded Allergies: No Known Drug Allergies (Verified Allergy, Unknown, 03/01/16) REVIEW OF SYSTEMS: Unable to obtain ROS from the patient due to AMS PHYSICAL EXAM: GENERAL: alert, weak, awake oriented x 1 HEENT: EOMI, Sclera non icteric, moist mucosa NECK: Supple, no JVD, trachea midline LUNGS: Clear breath sounds bilaterally. No wheezes HEART: Regular rate and rhythm. Normal S1 and S2, without murmurs ABD: Abdomen soft, nontender. Bowel sounds present EXT: No clubbing cyanosis or edema NEURO: Alert and oriented to person, follows commands Vital Signs (last 8hr) Date Time Temp Pulse Resp B/P (MAP) Pulse Ox O2 Delivery O2 Flow Rate FiO2 05/11/24 18:52 90 19 161/96 98 Room Air* 0 21 05/11/24 17:11 97.3 102 20 157/98 97 Room Air* 0 21 05/11/24 15:46 98.4 92 20 150/94 98 Room Air* 0 21 05/11/24 13:56 95 20 LABS: Hematology Labs: Test 05/11/24 11:11 Range/Units White Blood Count 9.7 4.8-10.8 K/uL Red Blood Count 5.39 4.50-6.20 MIL/uL Hemoglobin 16.1 14.0-18.0 g/dL Hematocrit 47.6 42-54 % Mean Corpuscular Volume 88.3 79-99 fL Mean Corpuscular Hemoglobin 29.9 27.0-33.0 pg Mean Corpuscular Hemoglobin Concent 33.8 32.0-36.0 g/dL Red Cell Distribution Width 13.1 11.0-15.5 % Platelet Count 258 130-400 K/uL Mean Platelet Volume 9.3 7.5-10.5 fL Immature Granulocyte % (Auto) 0.3 0-1 % Neutrophils (%) (Auto) 71.6 40.0-77.0 % Lymphocytes (%) (Auto) 19.9 L 21.0-51.0 % Monocytes (%) (Auto) 6.2 3.0-13.0 % Eosinophils (%) (Auto) 1.5 0.0-8.0 % Basophils (%) (Auto) 0.5 0.0-5.0 % Neutrophils # (Auto) 6.9 1.8-7.7 K/uL Lymphocytes # (Auto) 1.9 1.0-4.8 K/uL Monocytes # (Auto) 0.6 0.1-1.0 K/uL Eosinophils # (Auto) 0.14 0.00-0.70 K/uL Basophils # (Auto) 0.05 0.00-0.20 K/uL Absolute Immature Granulocyte (auto 0.03 0-1 K/uL Nucleated Red Blood Cells 0.0 0.0-0.19 % Chemistry Labs: Test 05/11/24 15:12 05/11/24 11:11 Range/Units Lactic Acid Level 3.5 H 0.8-2.5 mmol/L Sodium Level 140 136-145 mmol/L Potassium Level 3.8 3.5-5.1 mmol/L Chloride Level 102 101-111 mmol/L Carbon Dioxide Level 26 21-32 mmol/L Blood Urea Nitrogen 14 7-18 mg/dL Creatinine 1.2 0.5-1.3 mg/dL Glomerular Filtration Rate Calc 61 >90 mL/min Random Glucose 185 H 70-105 mg/dL Total Calcium 9.2 8.5-10.1 mg/dL Total Creatine Kinase 128 21-232 U/L Troponin I High Sensitivity 34 4-75 ng/L B-Type Natriuretic Peptide 91 0-100 pg/mL DIAGNOSTICS / RADIOLOGY RESULTS: [ ] Pulmonary PLAN Monitor respiratory status closely. Oxygen therapy as needed, titrate to keep SpO2 equal to greater than 92%. Continue albuterol and Atrovent as needed for shortness of breath. Robitussin DM as needed for cough. RT to provide IS and education on use. Continue antibiotic therapy Rocephin Start doxycycline 100 mg IV b.i.d. for the sputum production/cough. Obtain sputum cultures. CT PE protocol was ordered and is negative. Repeat ABG in a.m.. Pending bilateral venous Doppler. Additional plan assessment per admitting team. JERSEY SOUZA SUPERVISOR [employer] May 11, 2024 19:27
[2024-05-11] MEDS: FAMOTIDINE 20MG VIAL IV SCH (20:35)
[2024-05-11] MEDS: metoPROLOL tartRATE 25 MG TAB PO SCH (20:35)
[2024-05-11 21:53] LABS: HEMOGLOBIN A1C 6.9 % (4.0-6.0)
[2024-05-11 22:03] LABS: THYROID STIMULATING HORMONE 2.04 uIU/mL (0.36-3.74)
[2024-05-11] MEDS ORDERED: IOHEXOL 350 MG/ML 100ML INFUS..BTL IV ONE (23:10)
[2024-05-11] MEDS: LORazepam 2 MG/ML 1 ML VIAL IVP ONE (23:15)
[2024-05-11 23:50] VITALS: BP 180/92; PULSE 94; RESP 18; TEMP 98
--- NOTE | 2024-05-11 23:52 | HMCIMG ---
CT CHEST PE PROTOCOL WWO CONT HISTORY: Elevated d-dimer COMPARISON: None TECHNIQUE: CT angiography of the chest was performed. The study was performed using angiographic technique with maximum intensity projection reconstruction images. Patient was given 100 cc of Omnipaque through intravenous route. FINDINGS: No CT evidence of filling defect is seen to suggest pulmonary embolus. No CT evidence of aortic dissection is seen. No evidence of parenchymal disease is seen. No CT evidence of pleural effusion or pericardial effusion is seen. The heart is enlarged. Coronary arterial calcifications are seen. No evidence of adrenal mass is seen. Degenerative changes of the spine are noted. Fatty changes of the liver are noted. Gallbladder is distended. There are left renal cysts with the largest measuring 4.3 cm. IMPRESSION: 1. No CT evidence of acute pulmonary embolus is seen. CT was performed with one or more following dose reduction techniques: automated exposure control, adjustment of the mA and kv according to patient's size, or use of a iterative reconstruction technique.
[2024-05-12] VITALS (8 sets, daily range): BP systolic 113–188; BP diastolic 65–98; PULSE 66–105; RESP 18–20; TEMP 98.1–98.9; O2SAT 99
[2024-05-12] MEDS: LAbetaLOL 20MG SYG IV ONE (00:44)
[2024-05-12] MEDS ORDERED: guaiFENesin SUGAR-FREE 100 MG/5 ML UDCUP PO PRN (03:00)
[2024-05-12] MEDS: DOXYCYCLINE 100MG+NS 250ML 250 ML IV SCH (04:40)
[2024-05-12] MEDS: INSULIN humuLIN R 100 UNIT/ML 3ML SQ SCH (05:35)
[2024-05-12 07:24] LABS: BASOPHILS # (AUTO) 0.06 K/uL (0.00-0.20); BASOPHILS % (AUTO) 0.7 % (0.0-5.0); EOSINOPHILS # (AUTO) 0.19 K/uL (0.00-0.70); EOSINOPHILS % (AUTO) 2.3 % (0.0-8.0); HEMATOCRIT 46.6 % (42-54); IMMATURE GRANULOCYTE ABSOLUTE 0.03 K/uL (0-1); LYMPHOCYTES % (AUTO) 23.6 % (21.0-51.0); MEAN CORPUSCULAR HGB CONC 33.3 g/dL (32.0-36.0); MEAN CORPUSCULAR VOLUME 90.3 fL (79-99); MONOCYTES # (AUTO) 0.4 K/uL (0.1-1.0); MONOCYTES % (AUTO) 5.3 % (3.0-13.0); NEUTROPHILS # (AUTO) 5.7 K/uL (1.8-7.7); NEUTROPHILS % (AUTO) 67.7 % (40.0-77.0); PLATELET COUNT (AUTO) 219 K/uL (130-400); RED BLOOD CELL COUNT(AUTO) 5.16 MIL/uL (4.50-6.20); RED CELL DISTRIBUTION WIDTH 13.3 % (11.0-15.5); WHITE BLOOD COUNT (AUTO) 8.4 K/uL (4.8-10.8)
[2024-05-12 07:40] LABS: POTASSIUM 4.5 mmol/L (3.5-5.1)
--- NOTE | 2024-05-12 08:27 | HMCIMG ---
ULTRASOUND VENOUS DOPPLER, BILATERAL LOWER EXTREMITIES INDICATION: Bilateral lower extremity pain and swelling TECHNIQUE: Routine grayscale and color Doppler ultrasound of the bilateral lower extremity veins performed. COMPARISON: No priors. FINDINGS: The demonstrated veins of the bilateral lower extremity including the common femoral vein, femoral vein, and popliteal vein are associated with normal compressibility, augmentation, and flow. Normal respiratory variation was identified. No evidence for echogenic intraluminal thrombus formation. IMPRESSION: No sonographic evidence for deep venous thrombosis within the bilateral lower extremity veins.
[2024-05-12] MEDS: CEFTRIAXONE 2GM VIAL IVPB SCH (08:45)
[2024-05-12 10:22] LABS: ABG BASE EXCESS -2.5 mmol/L (-2.0-3.0); ABG HCO3 21.2 mmol/L (21.0-28.0); ABG OXYGEN SATURATION 97.4 % (94.0-98.0); ABG PCO2 34 mmHg (35-48); ABG PH 7.416 (7.350-7.450); VENT MODE, BG ROOM AIR (ROOM AIR)
--- NOTE | 2024-05-12 13:19 | PN ---
[facility] PROGRESS NOTE Date of Service: May 12, 2024 Time of Service: 13:11 SUBJECTIVE: Follow up visit for 79-year-old male admitted to hospital community-acquired pneumonia, metabolic encephalopathy, respiratory alkalosis. Patient remains on IV Rocephin and doxycycline. Patient is being followed by pulmonology services. Patient is saturating adequately on room air. ABGs from this morning showing pH of 7.4, pCO2 of 34, PO2 of 95. Patient also with concerns for progressively worsened dementia over the past months. 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 REVIEW OF SYSTEMS CONSTITUTIONAL: Denies fevers, or night sweats. No unintentional weight loss reported. Positive for chills NEUROLOGICAL: Denies headache, amaurosis fugax, motor weakness, sensory deficit, vertigo/spinning sensation, gait abnormalities, or tremors. ENT: No hearing loss, otalgia, otorrhea, rhinitis, rhinorrhea, hoarseness, or sore throat. CARDIOVASCULAR: Denies any exertional angina, dyspnea on exertion, orthopnea, paroxysmal nocturnal dyspnea, palpitations, life-threatening arrhythmias, claudication. PULMONARY: Positive for shortness of breath, cough, sputum production SLEEP: Denies morning headaches, daytime somnolence or napping. Denies difficulty falling asleep, staying asleep, waking from sleep. Denies knowledge of snoring. GASTROINTESTINAL: Positive for abdominal pain. Denied any nausea, vomiting, melena, hematochezia, hematemesis. GENITOURINARY: Denies frequency, urgency, nocturia, hematuria or incontinence (Storage/Irritative symptoms.) Low urinary stream, straining to void, urinary intermittency or hesitancy, splitting of the voiding stream, terminal dribbling. ENDOCRINOLOGIC: Denies polyuria, polydipsia, polyphagia or heat/cold intolerances. HEMATOLOGIC: Denies thrombophilia/previous clots, or coagulopathy/bleeding disorders. ONCOLOGIC: Denies personal history of malignancy. DERMATOLOGIC: Denies rashes or pruritus. PSYCHIATRIC: Denies any suicidal or homicidal ideation. Denies hallucinations. PHYSICAL EXAM GENERAL APPEARANCE: The patient is awake, alert, and oriented, in no acute cardiopulmonary distress. NEUROLOGICAL: Cranial nerves II-XII grossly intact. Motor is 5/5 in bilateral upper and lower extremities proximal to distal. No sensory deficits. HEENT: Face is symmetric. Pupils are equal and reactive. Extraocular movements are intact. NECK: Supple. No JVD. No thyromegaly. No submental, submandibular, pre- /postauricular, occipital or supraclavicular lymphadenopathy. CHEST: Normal chest expansion. No Telemetry. LUNGS: Absence of any rales, rhonchi or any wheezing. CARDIOVASCULAR: Regular. S1 and S2 normal. No appreciable rubs, murmurs or gallops. ABDOMEN: Soft, nontender, and nondistended. There is no rebound, voluntary guarding, or rigidity. : Deferred. No Greene. EXTREMITIES: Non-edematous and not cyanotic. No clubbing. Good capillary refill. SKIN: No skin breakdown. Vital Signs (last 8hr) Date Time Temp Pulse Resp B/P (MAP) Pulse Ox O2 Delivery O2 Flow Rate FiO2 05/12/24 12:03 98.2 72 18 166/90 93 Room Air 05/12/24 08:00 Room Air* 0 21 05/12/24 08:00 98.4 86 18 185/98 95 Room Air LABS: Laboratory: Test 05/12/24 12:00 05/12/24 10:19 05/12/24 07:07 05/11/24 21:19 Range/Units Whole Blood Glucose 148 H 70-110 MG/DL Blood Gas Specimen Type Arterial Arterial Blood pH 7.416 7.350-7.450 Arterial Blood Partial Pressure CO2 34 L 35-48 mmHg Arterial Blood Partial Pressure O2 95.0 83.0-108.0 mmHg Arterial Blood HCO3 21.2 21.0-28.0 mmol/L Arterial Blood Oxygen Saturation 97.4 94.0-98.0 % Arterial Blood Base Excess -2.5 L -2.0-3.0 mmol/L Blood Gas Temperature 37.0 35.5-37.0 CELSIUS Blood Gas Vent Mode ROOM AIR ROOM AIR FiO2 21.0 % Blood Gas Specimen Comment CLARIBEL KATHLEEN White Blood Count 8.4 4.8-10.8 K/uL Red Blood Count 5.16 4.50-6.20 MIL/uL Hemoglobin 15.5 14.0-18.0 g/dL Hematocrit 46.6 42-54 % Mean Corpuscular Volume 90.3 79-99 fL Mean Corpuscular Hemoglobin 30.0 27.0-33.0 pg Mean Corpuscular Hemoglobin Concent 33.3 32.0-36.0 g/dL Red Cell Distribution Width 13.3 11.0-15.5 % Platelet Count 219 130-400 K/uL Mean Platelet Volume 9.2 7.5-10.5 fL Immature Granulocyte % (Auto) 0.4 0-1 % Neutrophils (%) (Auto) 67.7 40.0-77.0 % Lymphocytes (%) (Auto) 23.6 21.0-51.0 % Monocytes (%) (Auto) 5.3 3.0-13.0 % Eosinophils (%) (Auto) 2.3 0.0-8.0 % Basophils (%) (Auto) 0.7 0.0-5.0 % Neutrophils # (Auto) 5.7 1.8-7.7 K/uL Lymphocytes # (Auto) 2.0 1.0-4.8 K/uL Monocytes # (Auto) 0.4 0.1-1.0 K/uL Eosinophils # (Auto) 0.19 0.00-0.70 K/uL Basophils # (Auto) 0.06 0.00-0.20 K/uL Absolute Immature Granulocyte (auto 0.03 0-1 K/uL Nucleated Red Blood Cells 0.0 0.0-0.19 % Sodium Level 140 136-145 mmol/L Potassium Level 4.5 3.5-5.1 mmol/L Chloride Level 105 101-111 mmol/L Carbon Dioxide Level 29 21-32 mmol/L Blood Urea Nitrogen 8 7-18 mg/dL Creatinine 1.0 0.5-1.3 mg/dL Glomerular Filtration Rate Calc 76 >90 mL/min Random Glucose 165 H 70-105 mg/dL Total Calcium 8.7 8.5-10.1 mg/dL D-Dimer Quantitative (PE/DVT) 995 *H 0-500 ng/mL Hemoglobin A1c 6.9 H 4.0-6.0 % Estimated Average Glucose (eAG) 151 H 70-126 mg/dL C-Reactive Protein, Quantitative < 0.50 L 0.5-3.0 mg/L Procalcitonin < 0.05 L 0.05-0.5 ng/mL Thyroid Stimulating Hormone (TSH) 2.04 0.36-3.74 uIU/mL Test 05/11/24 19:45 05/11/24 15:56 05/11/24 15:12 05/11/24 15:10 Range/Units Group A Streptococcus Rapid negative NEGATIVE Hemoglobin (Blood Gas) 15.8 13.5-17.5 g/dL Sodium (Blood Gas) 141 136-145 MMOL/L Bedside Potassium (Blood Gas) 3.3 L 3.4-4.5 MMOL/L Bedside Chloride (Blood Gas) 109 H 98-107 MMOL/L Bedside Glucose (Blood Gas) 132 H 65-95 MG/DL Bedside Ionized Calcium (Blood Gas) 1.07 L 1.15-1.33 MMOL/L Bedside Lactic Acid (Blood Gas) 2.16 H 0.36-0.75 MMOL/L Lactic Acid Level 3.5 H 0.8-2.5 mmol/L Influenza Type A Antigen Negative For Type A NEGATIVE Influenza Type B Antigen Negative For Type B NEGATIVE Test 05/11/24 11:35 05/11/24 11:13 05/11/24 11:11 Range/Units Urine Color YELLOW YELLOW Urine Appearance CLEAR CLEAR Urine pH 7.0 5.0-8.0 Urine Specific [place] 1.027 1.001-1.031 Urine Protein 20 H NEGATIVE mg/dL Urine Glucose (UA) TRACE H NEGATIVE mg/dL Urine Ketones 60 H NEGATIVE mg/dL Urine Occult Blood NEGATIVE NEGATIVE Urine Nitrate NEGATIVE NEGATIVE Urine Bilirubin NEGATIVE NEGATIVE mg/dL Urine Urobilinogen 4.0 H 0.2-1.0 mg/dL Urine Leukocyte Esterase NEGATIVE NEGATIVE [place]/uL Urine RBC 2-5 H 0-1 /HPF Urine WBC 0-1 0-1 /HPF Urine Bacteria None None Seen /HPF SARS-CoV-2 Antigen (Rapid) PRESUMPTIVE NEGATIVE NEGATIVE Total Creatine Kinase 128 21-232 U/L Troponin I High Sensitivity 34 4-75 ng/L B-Type Natriuretic Peptide 91 0-100 pg/mL Current Medications Medications (Trade) Dose Ordered Sig/Rere Route PRN Reason Start Time Stop Time Status Last Admin Dose Admin Acetaminophen (TYLenol 500MG TAB) 500 mg Q6H PRN PO MILD PAIN (1-3) 05/11/24 15:30 06/10/24 15:29 Albuterol (DUOneb) 1 UDVIAL Q6H PRN IH SHORTNESS OF BREATH 05/11/24 15:30 06/10/24 15:29 Azithromycin 250 ml @ 250 mls/hr Q24H IVPB 05/11/24 13:30 05/11/24 13:39 DC Ceftriaxone Sodium (Rocephin 2gm Inj) 2 gm Q24H IVPB 05/12/24 09:00 05/22/24 08:59 05/12/24 08:45 2 GM Doxycycline Hyclate 250 ml @ 125 mls/hr Q12H IV 05/12/24 03:00 05/22/24 02:59 05/12/24 04:40 125 MLS/HR Famotidine (Pepcid 20mg Vial) 20 mg Q24H IV 05/11/24 21:00 06/10/24 20:59 05/11/24 20:35 20 MG Guaifenesin (RobiTUSSin SUGAR-FREE 100 MG/ 5 ML UDCUP) 200 mg Q4H PRN PO COUGH 05/12/24 03:00 06/11/24 02:59 Haloperidol Lactate (Haldol Inj) 1 mg ONCE IM 05/11/24 17:30 05/11/24 23:30 DC 05/11/24 17:27 1 MG Insulin Human Regular (humuLIN R 100 UNIT/ML 3ML) INSULIN SLIDING SCAL... ACHS SQ 05/12/24 07:30 06/11/24 07:29 Metoprolol Tartrate (loprESSOR) 25 mg BID PO 05/11/24 21:00 06/10/24 20:59 05/12/24 08:46 25 MG Sodium Chloride 1,000 ml @ 75 mls/hr [id number] IV 05/11/24 15:30 06/10/24 15:29 05/12/24 07:32 75 MLS/HR DIAGNOSTICS / RADIOLOGY: [ ] ASSESSMENT: AMS secondary to infectious versus metabolic encephalopathy Dementia Possible sepsis rule out Lactic acidosis Community-acquired pneumonia versus URI rule out Respiratory alkalosis Medical noncompliance History of atrial fibrillation not on anticoagulation Hypertension not on medications Hyperlipidemia not on medications History of aneurysm PLAN: - continue admission to medical-surgical unit with telemetry -in reference to AMS with associated dementia. Patient seems to be at baseline at this time. We will obtain a brain MRI, further evaluation. -reference to possible sepsis. Patient will continue on Rocephin and doxycycline. follow up on blood cultures -in reference to respiratory alkalosis, repeat ABGs show improvement. Patient currently saturating adequately on room air. Continue to monitor saturations closely maintain 92% or above. Continue bronchodilators. Consultation with pulmonology has been obtained, we will follow up with recommendations. -patient to continue on gentle hydration -continue on metoprolol 25 mg b.i.d. - PT evaluation - okay to initiate cardiac - follow up a.m. labs -further orders per hospitalization course. TAY KENT May 12, 2024 13:19
[2024-05-12] MEDS: SODIUM CHLORIDE 3% FOR INHALATION 4 ML/AMP VIAL.NEB IH ONE ×2 (15:25→18:54)
--- NOTE | 2024-05-12 15:37 | PN ---
[facility] PROGRESS NOTE Date Patient Seen: May 12, 2024 Time of Visit: 15:37 Supervising Physician: Dr. Miguelangel Cooley Primary Care Physician: Ravi Cannon Attending providers: [facility] Hospitalist Team Outpatient Specialists: Dr. Edge, info specialist. 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 AAO x name. Currently on room air. Repeat ABG shows PH 7.416, PCO2 34 and PO2 95. Denies any chest pain, SOB, abdominal pain, nausea or vomiting. Confused, sitter at bedside. CTA chest negative for PE or any other findings. Continue care per medical team. BIS will sign off at this time, please re-consult as needed. Thank you. REVIEW OF SYSTEMS: Unable to obtain ROS from the patient due to AMS PHYSICAL EXAM: GENERAL: alert, weak, awake oriented x 1 HEENT: EOMI, Sclera non icteric, moist mucosa NECK: Supple, no JVD, trachea midline LUNGS: Clear breath sounds bilaterally. No wheezes HEART: Regular rate and rhythm. Normal S1 and S2, without murmurs ABD: Abdomen soft, nontender. Bowel sounds present EXT: No clubbing cyanosis or edema NEURO: Alert and oriented to person, follows commands Vital Signs (last 8hr) Date Time Temp Pulse Resp B/P (MAP) Pulse Ox O2 Delivery O2 Flow Rate FiO2 05/12/24 12:03 98.2 72 18 166/90 93 Room Air 05/12/24 08:00 Room Air* 0 21 05/12/24 08:00 98.4 86 18 185/98 95 Room Air LABS: Hematology Labs: Test 05/12/24 07:07 Range/Units White Blood Count 8.4 4.8-10.8 K/uL Red Blood Count 5.16 4.50-6.20 MIL/uL Hemoglobin 15.5 14.0-18.0 g/dL Hematocrit 46.6 42-54 % Mean Corpuscular Volume 90.3 79-99 fL Mean Corpuscular Hemoglobin 30.0 27.0-33.0 pg Mean Corpuscular Hemoglobin Concent 33.3 32.0-36.0 g/dL Red Cell Distribution Width 13.3 11.0-15.5 % Platelet Count 219 130-400 K/uL Mean Platelet Volume 9.2 7.5-10.5 fL Immature Granulocyte % (Auto) 0.4 0-1 % Neutrophils (%) (Auto) 67.7 40.0-77.0 % Lymphocytes (%) (Auto) 23.6 21.0-51.0 % Monocytes (%) (Auto) 5.3 3.0-13.0 % Eosinophils (%) (Auto) 2.3 0.0-8.0 % Basophils (%) (Auto) 0.7 0.0-5.0 % Neutrophils # (Auto) 5.7 1.8-7.7 K/uL Lymphocytes # (Auto) 2.0 1.0-4.8 K/uL Monocytes # (Auto) 0.4 0.1-1.0 K/uL Eosinophils # (Auto) 0.19 0.00-0.70 K/uL Basophils # (Auto) 0.06 0.00-0.20 K/uL Absolute Immature Granulocyte (auto 0.03 0-1 K/uL Nucleated Red Blood Cells 0.0 0.0-0.19 % Chemistry Labs: Test 05/12/24 12:00 05/12/24 07:07 05/11/24 21:19 05/11/24 15:12 Range/Units Whole Blood Glucose 148 H 70-110 MG/DL Sodium Level 140 136-145 mmol/L Potassium Level 4.5 3.5-5.1 mmol/L Chloride Level 105 101-111 mmol/L Carbon Dioxide Level 29 21-32 mmol/L Blood Urea Nitrogen 8 7-18 mg/dL Creatinine 1.0 0.5-1.3 mg/dL Glomerular Filtration Rate Calc 76 >90 mL/min Random Glucose 165 H 70-105 mg/dL Total Calcium 8.7 8.5-10.1 mg/dL Hemoglobin A1c 6.9 H 4.0-6.0 % Estimated Average Glucose (eAG) 151 H 70-126 mg/dL C-Reactive Protein, Quantitative < 0.50 L 0.5-3.0 mg/L Procalcitonin < 0.05 L 0.05-0.5 ng/mL Thyroid Stimulating Hormone (TSH) 2.04 0.36-3.74 uIU/mL Lactic Acid Level 3.5 H 0.8-2.5 mmol/L Test 05/11/24 11:11 Range/Units Total Creatine Kinase 128 21-232 U/L Troponin I High Sensitivity 34 4-75 ng/L B-Type Natriuretic Peptide 91 0-100 pg/mL Coagulation Labs: Test 05/11/24 21:19 Range/Units D-Dimer Quantitative (PE/DVT) 995 *H 0-500 ng/mL DIAGNOSTICS / RADIOLOGY RESULTS: PROCEDURE: CHES PE - CT CHEST PE PROTOCOL WWO CONT CT CHEST PE PROTOCOL WWO CONT HISTORY: Elevated d-dimer COMPARISON: None TECHNIQUE: CT angiography of the chest was performed. The study was performed using angiographic technique with maximum intensity projection reconstruction images. Patient was given 100 cc of Omnipaque through intravenous route. FINDINGS: No CT evidence of filling defect is seen to suggest pulmonary embolus. No CT evidence of aortic dissection is seen. No evidence of parenchymal disease is seen. No CT evidence of pleural effusion or pericardial effusion is seen. The heart is enlarged. Coronary arterial calcifications are seen. No evidence of adrenal mass is seen. Degenerative changes of the spine are noted. Fatty changes of the liver are noted. Gallbladder is distended. There are left renal cysts with the largest measuring 4.3 cm. IMPRESSION: 1. No CT evidence of acute pulmonary embolus is seen. Pulmonary PLAN Continue albuterol and Atrovent as needed for shortness of breath. Robitussin DM as needed for cough. RT to provide IS and education on use. Continue antibiotic per primary team Obtain sputum cultures. Bilateral venous Doppler negative Additional plan assessment per admitting team. Follow up in the pulmonary clinic on discharge. BIS will sign off, please re-consult if needed. FLORENCE KATHLEEN May 12, 2024 15:37
[2024-05-12] MEDS: hydrALAZine 20MG/ML VIAL IV PRN (16:38)
--- NOTE | 2024-05-12 18:03 | HMCSR ---
APPROVED REPORT EXAM: Two-dimensional and M-mode echocardiogram with Doppler and color Doppler. Study Details: A/fib .HTN , HLD ,Dementia INDICATION ICD: Atrial Fibrillation 2D Dimensions RVDd3.4 cmLVEF(%)93.6 (>50%)LVED Vol(simp.)104.0 mL IVSd1.5 (0.7-1.1cm)FS(%)67 %LVES Vol(simp.)51.4 mL LVDd4.2 (3.8-5.6cm)LA (2D)3.6 (1.6-4.0cm)LVEF(%, simp.)51 % PWd1.1 (0.7-1.1cm)Ao Root(2D)3.6 (2.0-3.7cm)LA ESV INDEX (4CH)27.90 mL/m2 IVSs1.5 cmLVOT diam2.0 (1.8-2.4cm)LA ESV INDEX (2CH)21.10 mL/m2 LVDs3.1 (2.5-4.0cm)LA ESV INDEX (BP)25.20 mL/m2 PWs1.4 cm Deformation Strain Apical 412.0 % Apical 215.0 % Apical 315.0 % Global Asnbqc87.0 % M-Mode Dimensions EPSS1.7 cm LA (MM)4.6 (1.6-4.0cm) Ao Root(MM)4.0 (2.0-3.7cm) Aortic Valve AoV VTI0.6 mAo Mean GR19.0 mmHgLVOT VTI0.14 m FANNY (VMAX)0.8 cm2AVA (VTI) 0.8 cm2 Mitral Valve MV E Hlme153.8 cm/sDECEL Ehgr256 ms MV A Vmax68.4 cm/sP 1/2 T31 ms E/A ratio2.3MVA (PHT)7.1 cm2 TDI E/E' Eqhcep41.4E/E' Bbdselg32.0 Medial E' Peak V4.50 cm/sLateral E' Peak V10.30 cm/s Pulmonary Valve PV VTI0.17 mPV Mean GR2 mmHg Left Ventricle Left ventricular cavity size is normal. Mild concentric left ventricular hypertrophy. LVEF is 45-50%. Stage II diastolic dysfunction. Right Ventricle The right ventricle is normal size. The right ventricular systolic function is normal. Atria The left atrium is moderately dilated. The right atrium is mildly dilated. Aortic Valve Aortic valve is severely calcified. No aortic regurgitation is present. Moderate to severe aortic regan nosis FANNY 0.8 cm2, MG 19 mm HG, PV 3 m/s. Mitral Valve Mitral valve leaflets have restricted excursion. Mild mitral annular calcification present. Mitral re gurgitation is trace. There is no mitral valve stenosis. Tricuspid Valve The tricuspid valve leaflets appear normal. There is no tricuspid valve regurgitation noted. Pulmonic Valve Pulmonic valve is not well visualized. There is no pulmonic valvular regurgitation. Great Vessels The aortic root is normal in size. The ascending aorta is normal in size. The IVC is normal in size a nd collapses >50% with inspiration. Pericardium No pericardial effusion. Conclusion Left ventricular cavity size is normal. LVEF is 45-50%. Stage II diastolic dysfunction. The right ventricle is normal size. The right ventricular systolic function is normal. The left atrium is moderately dilated. The right atrium is mildly dilated. Aortic valve is severely calcified. No aortic regurgitation is present. Moderate to severe aortic stenosis FANNY 0.8 cm2, MG 19 mm HG, PV 3 m/s. No pericardial effusion.
--- NOTE | 2024-05-12 19:45 | EKG ---
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 Telephone: [phone] Requested By: FRANDY MESSER Order Number: [id number] Reading MD: Gareth Rivers Measurements Intervals [place] Rate: 89 P: 0 MS: 0 QRS: 6 QRSD: 90 T: 49 QT: 401 QTc: 495 Interpretive Statements Atrial flutter with predominant 3:[address] elevation, anterior leads Compared to ECG 12/04/2021 12:29:30 AV block, advanced (high-grade) now present ST (T wave) deviation now present Sinus rhythm no longer present First degree AV block no longer present Electronically Signed On 05-14-2024 13:12:34 [employer] by Gareth Rivers Please click the below link to view image of tracing.
[2024-05-12] MEDS: HALOPERIDOL INJ 5 MG/ML VIAL IM SCH (21:36)
[2024-05-13] VITALS (7 sets, daily range): BP systolic 104–166; BP diastolic 66–108; PULSE 72–99; RESP 16–20; TEMP 98–98.9; O2SAT 95–97
[2024-05-13] MEDS: SODIUM CHLORIDE 3% FOR INHALATION 4 ML/AMP VIAL.NEB IH ONE (06:55)
--- NOTE | 2024-05-13 11:27 | PN ---
[facility] PROGRESS NOTE Date of Service: May 13, 2024 Time of Service: 11:06 SUBJECTIVE: Follow up visit for 79-year-old male admitted to hospital community-acquired pneumonia, metabolic encephalopathy, respiratory alkalosis. Patient remains on IV Rocephin and doxycycline. Patient is being followed by pulmonology services. Patient is saturating adequately on room air. ABGs from this morning showing pH of 7.4, pCO2 of 34, PO2 of 95. Patient also with concerns for progressively worsened dementia over the past months. is at bedside stating approximately one year ago patient discontinued all his medications despite recommendations from PCP and his primary manager financial planning. 05/13 patient is seen at the bedside. He is awake and slightly confused. He is coherent to place but not to time. Patient denies difficulty in breathing, headaches, chest pain, palpitations, abdominal pain. His productive cough episodes have subsided. Vitals temperature 99, pulse rate 92, respiratory rate 18, blood pressure 104/66, SpO2 95% on room air. Last night, he was agitated and was given 1 dose of Haldol. Preliminary blood culture, urine culture, nasal screen for MRSA results came back negative. Bilateral venous Doppler results came back negative. 2D echo resulted in left ventricular ejection fraction of 45-50% and stage II diastolic dysfunction. Yesterday labs showed no remarkable results. Patient's refused MRI brain. As per , patient has stopped taking all his home medications approximately 1 yr back. REVIEW OF SYSTEMS CONSTITUTIONAL: Denies fevers, or night sweats. No unintentional weight loss reported. Positive for chills NEUROLOGICAL: Denies headache, amaurosis fugax, motor weakness, sensory deficit, vertigo/spinning sensation, gait abnormalities, or tremors. ENT: No hearing loss, otalgia, otorrhea, rhinitis, rhinorrhea, hoarseness, or sore throat. CARDIOVASCULAR: Denies any exertional angina, dyspnea on exertion, orthopnea, paroxysmal nocturnal dyspnea, palpitations, life-threatening arrhythmias, claudication. PULMONARY: Negative for shortness of breath, cough, sputum production SLEEP: Denies morning headaches, daytime somnolence or napping. Denies difficulty falling asleep, staying asleep, waking from sleep. Denies knowledge of snoring. GASTROINTESTINAL: Negative for abdominal pain. Denied any nausea, vomiting, melena, hematochezia, hematemesis. GENITOURINARY: Denies frequency, urgency, nocturia, hematuria or incontinence (Storage/Irritative symptoms.) Low urinary stream, straining to void, urinary intermittency or hesitancy, splitting of the voiding stream, terminal dribbling. ENDOCRINOLOGIC: Denies polyuria, polydipsia, polyphagia or heat/cold intolerances. HEMATOLOGIC: Denies thrombophilia/previous clots, or coagulopathy/bleeding disorders. ONCOLOGIC: Denies personal history of malignancy. DERMATOLOGIC: Denies rashes or pruritus. PSYCHIATRIC: Denies any suicidal or homicidal ideation. Denies hallucinations. PHYSICAL EXAM GENERAL APPEARANCE: The patient is awake, alert, and oriented, in no acute cardiopulmonary distress. NEUROLOGICAL: Cranial nerves II-XII grossly intact. Motor is 5/5 in bilateral upper and lower extremities proximal to distal. No sensory deficits. HEENT: Face is symmetric. Pupils are equal and reactive. Extraocular movements are intact. NECK: Supple. No JVD. No thyromegaly. No submental, submandibular, pre- /postauricular, occipital or supraclavicular lymphadenopathy. CHEST: Normal chest expansion. No Telemetry. LUNGS: Absence of any rales, rhonchi or any wheezing. CARDIOVASCULAR: Regular. S1 and S2 normal. No appreciable rubs, murmurs or gallops. ABDOMEN: Soft, nontender, and nondistended. There is no rebound, voluntary guarding, or rigidity. : Deferred. No Greene. EXTREMITIES: Non-edematous and not cyanotic. No clubbing. Good capillary refill. SKIN: No skin breakdown. Vital Signs (last 8hr) Date Time Temp Pulse Resp B/P (MAP) Pulse Ox O2 Delivery O2 Flow Rate FiO2 05/13/24 08:00 99.0 92 18 104/66 95 Room Air 05/13/24 07:00 96 19 N/A Room Air 21 05/13/24 04:00 98.1 92 20 152/89 94 Room Air 21 LABS: Laboratory: Test 05/13/24 05:29 05/12/24 10:19 05/12/24 07:07 05/11/24 21:19 Range/Units Whole Blood Glucose 185 H 70-110 MG/DL Blood Gas Specimen Type Arterial Arterial Blood pH 7.416 7.350-7.450 Arterial Blood Partial Pressure CO2 34 L 35-48 mmHg Arterial Blood Partial Pressure O2 95.0 83.0-108.0 mmHg Arterial Blood HCO3 21.2 21.0-28.0 mmol/L Arterial Blood Oxygen Saturation 97.4 94.0-98.0 % Arterial Blood Base Excess -2.5 L -2.0-3.0 mmol/L Blood Gas Temperature 37.0 35.5-37.0 CELSIUS Blood Gas Vent Mode ROOM AIR ROOM AIR FiO2 21.0 % Blood Gas Specimen CLARIBEL [place] White Blood Count 8.4 4.8-10.8 K/uL Red Blood Count 5.16 4.50-6.20 MIL/uL Hemoglobin 15.5 14.0-18.0 g/dL Hematocrit 46.6 42-54 % Mean Corpuscular Volume 90.3 79-99 fL Mean Corpuscular Hemoglobin 30.0 27.0-33.0 pg Mean Corpuscular Hemoglobin Concent 33.3 32.0-36.0 g/dL Red Cell Distribution Width 13.3 11.0-15.5 % Platelet Count 219 130-400 K/uL Mean Platelet Volume 9.2 7.5-10.5 fL Immature Granulocyte % (Auto) 0.4 0-1 % Neutrophils (%) (Auto) 67.7 40.0-77.0 % Lymphocytes (%) (Auto) 23.6 21.0-51.0 % Monocytes (%) (Auto) 5.3 3.0-13.0 % Eosinophils (%) (Auto) 2.3 0.0-8.0 % Basophils (%) (Auto) 0.7 0.0-5.0 % Neutrophils # (Auto) 5.7 1.8-7.7 K/uL Lymphocytes # (Auto) 2.0 1.0-4.8 K/uL Monocytes # (Auto) 0.4 0.1-1.0 K/uL Eosinophils # (Auto) 0.19 0.00-0.70 K/uL Basophils # (Auto) 0.06 0.00-0.20 K/uL Absolute Immature Granulocyte (auto 0.03 0-1 K/uL Nucleated Red Blood Cells 0.0 0.0-0.19 % Sodium Level 140 136-145 mmol/L Potassium Level 4.5 3.5-5.1 mmol/L Chloride Level 105 101-111 mmol/L Carbon Dioxide Level 29 21-32 mmol/L Blood Urea Nitrogen 8 7-18 mg/dL Creatinine 1.0 0.5-1.3 mg/dL Glomerular Filtration Rate Calc 76 >90 mL/min Random Glucose 165 H 70-105 mg/dL Total Calcium 8.7 8.5-10.1 mg/dL D-Dimer Quantitative (PE/DVT) 995 *H 0-500 ng/mL Hemoglobin A1c 6.9 H 4.0-6.0 % Estimated Average Glucose (eAG) 151 H 70-126 mg/dL C-Reactive Protein, Quantitative < 0.50 L 0.5-3.0 mg/L Procalcitonin < 0.05 L 0.05-0.5 ng/mL Thyroid Stimulating Hormone (TSH) 2.04 0.36-3.74 uIU/mL Test 05/11/24 19:45 05/11/24 15:56 05/11/24 15:12 05/11/24 15:10 Range/Units Group A Streptococcus Rapid negative NEGATIVE Hemoglobin (Blood Gas) 15.8 13.5-17.5 g/dL Sodium (Blood Gas) 141 136-145 MMOL/L Bedside Potassium (Blood Gas) 3.3 L 3.4-4.5 MMOL/L Bedside Chloride (Blood Gas) 109 H 98-107 MMOL/L Bedside Glucose (Blood Gas) 132 H 65-95 MG/DL Bedside Ionized Calcium (Blood Gas) 1.07 L 1.15-1.33 MMOL/L Bedside Lactic Acid (Blood Gas) 2.16 H 0.36-0.75 MMOL/L Lactic Acid Level 3.5 H 0.8-2.5 mmol/L Influenza Type A Antigen Negative For Type A NEGATIVE Influenza Type B Antigen Negative For Type B NEGATIVE Test 05/11/24 11:35 05/11/24 11:13 05/11/24 11:11 Range/Units Urine Color YELLOW YELLOW Urine Appearance CLEAR CLEAR Urine pH 7.0 5.0-8.0 Urine Specific [place] 1.027 1.001-1.031 Urine Protein 20 H NEGATIVE mg/dL Urine Glucose (UA) TRACE H NEGATIVE mg/dL Urine Ketones 60 H NEGATIVE mg/dL Urine Occult Blood NEGATIVE NEGATIVE Urine Nitrate NEGATIVE NEGATIVE Urine Bilirubin NEGATIVE NEGATIVE mg/dL Urine Urobilinogen 4.0 H 0.2-1.0 mg/dL Urine Leukocyte Esterase NEGATIVE NEGATIVE [place]/uL Urine RBC 2-5 H 0-1 /HPF Urine WBC 0-1 0-1 /HPF Urine Bacteria None None Seen /HPF SARS-CoV-2 Antigen (Rapid) PRESUMPTIVE NEGATIVE NEGATIVE Total Creatine Kinase 128 21-232 U/L Troponin I High Sensitivity 34 4-75 ng/L B-Type Natriuretic Peptide 91 0-100 pg/mL Current Medications Medications (Trade) Dose Ordered Sig/Rere Route PRN Reason Start Time Stop Time Status Last Admin Dose Admin Acetaminophen (TYLenol 500MG TAB) 500 mg Q6H PRN PO MILD PAIN (1-3) 05/11/24 15:30 06/10/24 15:29 Albuterol (DUOneb) 1 UDVIAL Q6H PRN IH SHORTNESS OF BREATH 05/11/24 15:30 06/10/24 15:29 Azithromycin 250 ml @ 250 mls/hr Q24H IVPB 05/11/24 13:30 05/11/24 13:39 DC Ceftriaxone Sodium (Rocephin 2gm Inj) 2 gm Q24H IVPB 05/12/24 09:00 05/22/24 08:59 05/13/24 09:34 2 GM Doxycycline Hyclate 250 ml @ 125 mls/hr Q12H IV 05/12/24 03:00 05/22/24 02:59 05/13/24 03:16 125 MLS/HR Famotidine (Pepcid 20mg Vial) 20 mg Q24H IV 05/11/24 21:00 06/10/24 20:59 05/12/24 20:30 20 MG Guaifenesin (RobiTUSSin SUGAR-FREE 100 MG/ 5 ML UDCUP) 200 mg Q4H PRN PO COUGH 05/12/24 03:00 06/11/24 02:59 Haloperidol Lactate (Haldol Inj) 1 mg ONCE IM 05/11/24 17:30 05/11/24 23:30 DC 05/11/24 17:27 1 MG Haloperidol Lactate (Haldol Inj) 4 mg ONCE IM 05/12/24 17:55 05/12/24 23:31 DC 05/12/24 21:36 4 MG Hydralazine HCl (APRESOLine 20MG INJ) 10 mg Q6H PRN IV ADMINISTER FOR SBP > 160 05/12/24 16:30 12/2/24 16:29 05/13/24 03:17 10 MG Insulin Human Regular (humuLIN R 100 UNIT/ML 3ML) INSULIN SLIDING SCAL... ACHS SQ 05/12/24 07:30 06/11/24 07:29 Metoprolol Tartrate (loprESSOR) 25 mg BID PO 05/11/24 21:00 06/10/24 20:59 05/13/24 09:34 25 MG Sodium Chloride 1,000 ml @ 75 mls/hr [id number] IV 05/11/24 15:30 06/10/24 15:29 05/13/24 07:30 75 MLS/HR DIAGNOSTICS / RADIOLOGY: ULTRASOUND VENOUS DOPPLER, BILATERAL LOWER EXTREMITIES INDICATION: Bilateral lower extremity pain and swelling TECHNIQUE: Routine grayscale and color Doppler ultrasound of the bilateral lower extremity veins performed. COMPARISON: No priors. FINDINGS: The demonstrated veins of the bilateral lower extremity including the common femoral vein, femoral vein, and popliteal vein are associated with normal compressibility, augmentation, and flow. Normal respiratory variation was identified. No evidence for echogenic intraluminal thrombus formation. IMPRESSION: No sonographic evidence for deep venous thrombosis within the bilateral lower extremity veins. 2D ECHO Two-dimensional and M-mode echocardiogram with Doppler and color Doppler. Study Details: A/fib .HTN , HLD ,Dementia INDICATION ICD: Atrial Fibrillation 2D Dimensions RVDd 3.4 cm LVEF(%) 93.6 (>50%) LVED Vol(simp.) 104.0 mL IVSd 1.5 (0.7-1.1cm) FS(%) 67 % LVES Vol(simp.) 51.4 mL LVDd 4.2 (3.8-5.6cm) LA (2D) 3.6 (1.6-4.0cm) LVEF(%, simp.) 51 % PWd 1.1 (0.7-1.1cm) Ao Root(2D) 3.6 (2.0-3.7cm) LA ESV INDEX (4CH) 27.90 mL/m2 IVSs 1.5 cm LVOT diam 2.0 (1.8-2.4cm) LA ESV INDEX (2CH) 21.10 mL/m2 LVDs 3.1 (2.5-4.0cm) LA ESV INDEX (BP) 25.20 mL/m2 PWs 1.4 cm Deformation Strain Apical 4 12.0 % Apical 2 15.0 % Apical 3 15.0 % Global Strain 14.0 % M-Mode Dimensions EPSS 1.7 cm LA (MM) 4.6 (1.6-4.0cm) Ao Root(MM) 4.0 (2.0-3.7cm) Aortic Valve AoV VTI 0.6 m Ao Mean GR 19.0 mmHg LVOT VTI 0.14 m FANNY (VMAX) 0.8 cm2 FANNY (VTI) 0.8 cm2 Mitral Valve MV E Vmax 154.8 cm/s DECEL Time 109 ms MV A Vmax 68.4 cm/s P 1/2 T 31 ms E/A ratio 2.3 MVA (PHT) 7.1 cm2 TDI E/E' Medial 34.4 E/E' Lateral 15.0 Medial E' Peak V 4.50 cm/s Lateral E' Peak V 10.30 cm/s Pulmonary Valve PV VTI 0.17 m PV Mean GR 2 mmHg Left Ventricle Left ventricular cavity size is normal. Mild concentric left ventricular hypertrophy. LVEF is 45-50%. Stage II diastolic dysfunction. Right Ventricle The right ventricle is normal size. The right ventricular systolic function is normal. Atria The left atrium is moderately dilated. The right atrium is mildly dilated. Aortic Valve Aortic valve is severely calcified. No aortic regurgitation is present. Moderate to severe aortic stenosis FANNY 0.8 cm2, MG 19 mm HG, PV 3 m/s. Mitral Valve Mitral valve leaflets have restricted excursion. Mild mitral annular calcification present. Mitral regurgitation is trace. There is no mitral valve stenosis. Tricuspid Valve The tricuspid valve leaflets appear normal. There is no tricuspid valve regurgitation noted. Pulmonic Valve Pulmonic valve is not well visualized. There is no pulmonic valvular regurgitation. Great Vessels The aortic root is normal in size. The ascending aorta is normal in size. The IVC is normal in size and collapses >50% with inspiration. Pericardium No pericardial effusion. Conclusion Left ventricular cavity size is normal. LVEF is 45-50%. Stage II diastolic dysfunction. The right ventricle is normal size. The right ventricular systolic function is normal. The left atrium is moderately dilated. The right atrium is mildly dilated. Aortic valve is severely calcified. No aortic regurgitation is present. Moderate to severe aortic stenosis FANNY 0.8 cm2, MG 19 mm HG, PV 3 m/s. No pericardial effusion. ASSESSMENT: AMS secondary to infectious versus metabolic encephalopathy Dementia, POA Possible sepsis, ruled out Lactic acidosis, POA Community-acquired pneumonia versus URI rule out Respiratory alkalosis,improved Medical noncompliance, POA History of atrial fibrillation not on anticoagulation Hypertension not on medications Hyperlipidemia not on medications History of aneurysm History of Myocardial infarction, CABG x 6 in 2005 History of carotid artery stenosis, s/p left and right carotid endarterectomy, 2021 PLAN: Continue telemetry monitoring In reference to AMS with associated dementia. Patient seems to be at baseline at this time In reference to possible sepsis, continue IV antibiotics In reference to respiratory alkalosis, repeat ABGs showed improvement. Patient currently saturating adequately on room air. Continue to monitor saturations closely maintain 92% or above. Continue Duo Neb treatment Pending Sputum gram stain and culture results Patient to continue on gentle hydration Continue on metoprolol 25 mg b.i.d. Will start DVT prophylaxis, Lovenox 40 mg SQ daily Will start Aspirin 81mg daily Follow up on Physical therapy consult Follow up on case management consult Repeat labs tomorrow Follow up with Cardiology consult outpatient in view of atrial flutter on EKG, previous [place], CAD s/p CABG, high blood pressure MARGE AG MD May 13, 2024 11:26
[2024-05-13] MEDS: ENOXAPARIN SODIUM 40 MG/0.4 ML SYRINGE SQ SCH (15:51)
[2024-05-14] VITALS (9 sets, daily range): BP systolic 93–167; BP diastolic 38–97; PULSE 53–98; RESP 16–20; TEMP 97.8–99.6; O2SAT 92–97
[2024-05-14 05:04] LABS: BASOPHILS # (AUTO) 0.04 K/uL (0.00-0.20); BASOPHILS % (AUTO) 0.5 % (0.0-5.0); EOSINOPHILS # (AUTO) 0.11 K/uL (0.00-0.70); EOSINOPHILS % (AUTO) 1.5 % (0.0-8.0); HEMATOCRIT 44.4 % (42-54); IMMATURE GRANULOCYTE ABSOLUTE 0.03 K/uL (0-1); LYMPHOCYTES # (AUTO) 1.2 K/uL (1.0-4.8); LYMPHOCYTES % (AUTO) 15.9 % (21.0-51.0); MEAN CORPUSCULAR HEMOGLOBIN 29.8 pg (27.0-33.0); MEAN CORPUSCULAR HGB CONC 33.8 g/dL (32.0-36.0); MEAN CORPUSCULAR VOLUME 88.1 fL (79-99); MONOCYTES # (AUTO) 0.5 K/uL (0.1-1.0); MONOCYTES % (AUTO) 6.5 % (3.0-13.0); NEUTROPHILS # (AUTO) 5.5 K/uL (1.8-7.7); NEUTROPHILS % (AUTO) 75.2 % (40.0-77.0); PLATELET COUNT (AUTO) 199 K/uL (130-400); RED BLOOD CELL COUNT(AUTO) 5.04 MIL/uL (4.50-6.20); RED CELL DISTRIBUTION WIDTH 13.3 % (11.0-15.5); WHITE BLOOD COUNT (AUTO) 7.4 K/uL (4.8-10.8)
[2024-05-14 05:20] LABS: ALBUMIN 3.4 g/dL (3.5-5.0); BILIRUBIN,TOTAL 2.7 mg/dL (0.2-1.0); POTASSIUM 3.6 mmol/L (3.5-5.1); TOTAL PROTEIN, SERUM 6.3 g/dL (6.0-8.3)
[2024-05-14] MEDS: ASPIRIN 81MG CHEW TAB PO SCH (08:38)
[2024-05-14] MEDS: acetaMINOPHEN 500 MG TABLET PO PRN (10:46)
[2024-05-14] MEDS ORDERED: ESCI5TAB16 PO (14:34)
[2024-05-14] MEDS ORDERED: MEMA5TAB16 PO (14:34)
--- NOTE | 2024-05-14 15:23 | PN ---
[facility] PROGRESS NOTE Date of Service: May 14, 2024 Time of Service: 15:23 SUBJECTIVE: Follow up visit for 79-year-old male admitted to hospital community-acquired pneumonia, metabolic encephalopathy, respiratory alkalosis. Patient remains on IV Rocephin and doxycycline. Patient is being followed by pulmonology services. Patient is saturating adequately on room air. ABGs from this morning showing pH of 7.4, pCO2 of 34, PO2 of 95. Patient also with concerns for progressively worsened dementia over the past months. 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 05/13 patient is seen at the bedside. He is awake and slightly confused. He is coherent to place but not to time. Patient denies difficulty in breathing, headaches, chest pain, palpitations, abdominal pain. His productive cough episodes have subsided. Vitals temperature 99, pulse rate 92, respiratory rate 18, blood pressure 104/66, SpO2 95% on room air. Last night, he was agitated and was given 1 dose of Haldol. Preliminary blood culture, urine culture, nasal screen for MRSA results came back negative. Bilateral venous Doppler results came back negative. 2D echo resulted in left ventricular ejection fraction of 45-50% and stage II diastolic dysfunction. Yesterday labs showed no remarkable results. Patient's refused MRI brain. As per , patient has stopped taking all his home medications approximately 1 yr back. 05/14 Patient is seen at the bedside. He is awake, slightly confused, disoriented to place and time. Patient denies headache, dizziness, shortness of breath, palpitations, chest pain, cough, abdominal pain, diarrhea. Vitals temperature 98.2, pulse 61, respiratory rate 17 , blood pressure 137/97, SpO2 97% on room air. No acute events last night. Labs CBC, CMP are unremarkable. Lactic acid levels are normal 1.7. Blood culture results remain negative. Pending transfer to custodial facility [facility] for rehabilitation. REVIEW OF SYSTEMS CONSTITUTIONAL: Denies fevers, or night sweats. No unintentional weight loss reported. Positive for chills NEUROLOGICAL: Denies headache, amaurosis fugax, motor weakness, sensory deficit, vertigo/spinning sensation, gait abnormalities, or tremors. ENT: No hearing loss, otalgia, otorrhea, rhinitis, rhinorrhea, hoarseness, or sore throat. CARDIOVASCULAR: Denies any exertional angina, dyspnea on exertion, orthopnea, paroxysmal nocturnal dyspnea, palpitations, life-threatening arrhythmias, claudication. PULMONARY: Negative for shortness of breath, cough, sputum production SLEEP: Denies morning headaches, daytime somnolence or napping. Denies difficulty falling asleep, staying asleep, waking from sleep. Denies knowledge of snoring. GASTROINTESTINAL: Negative for abdominal pain. Denied any nausea, vomiting, melena, hematochezia, hematemesis. GENITOURINARY: Denies frequency, urgency, nocturia, hematuria or incontinence (Storage/Irritative symptoms.) Low urinary stream, straining to void, urinary intermittency or hesitancy, splitting of the voiding stream, terminal dribbling. ENDOCRINOLOGIC: Denies polyuria, polydipsia, polyphagia or heat/cold intolerances. HEMATOLOGIC: Denies thrombophilia/previous clots, or coagulopathy/bleeding disorders. ONCOLOGIC: Denies personal history of malignancy. DERMATOLOGIC: Denies rashes or pruritus. PSYCHIATRIC: Denies any suicidal or homicidal ideation. Denies hallucinations. PHYSICAL EXAM GENERAL APPEARANCE: The patient is awake, alert, and oriented, in no acute cardiopulmonary distress. NEUROLOGICAL: Cranial nerves II-XII grossly intact. Motor is 5/5 in bilateral upper and lower extremities proximal to distal. No sensory deficits. HEENT: Face is symmetric. Pupils are equal and reactive. Extraocular movements are intact. NECK: Supple. No JVD. No thyromegaly. No submental, submandibular, pre- /postauricular, occipital or supraclavicular lymphadenopathy. CHEST: Normal chest expansion. No Telemetry. LUNGS: Absence of any rales, rhonchi or any wheezing. CARDIOVASCULAR: Regular. S1 and S2 normal. No appreciable rubs, murmurs or gallops. ABDOMEN: Soft, nontender, and nondistended. There is no rebound, voluntary guarding, or rigidity. : Deferred. No Greene. EXTREMITIES: Non-edematous and not cyanotic. No clubbing. Good capillary refill. SKIN: No skin breakdown. Vital Signs (last 8hr) Date Time Temp Pulse Resp B/P (MAP) Pulse Ox O2 Delivery O2 Flow Rate FiO2 05/14/24 11:43 98.2 91 17 132/81 98 Room Air 11/4/24 08:14 98.2 61 17 137/97 97 Room Air 05/14/24 08:00 97 Room Air* 0 21 05/14/24 07:28 98 19 N/A Room Air 21 LABS: Laboratory: Test 05/14/24 11:35 05/14/24 04:51 Range/Units Whole Blood Glucose 126 H 70-110 MG/DL White Blood Count 7.4 4.8-10.8 K/uL Red Blood Count 5.04 4.50-6.20 MIL/uL Hemoglobin 15.0 14.0-18.0 g/dL Hematocrit 44.4 42-54 % Mean Corpuscular Volume 88.1 79-99 fL Mean Corpuscular Hemoglobin 29.8 27.0-33.0 pg Mean Corpuscular Hemoglobin Concent 33.8 32.0-36.0 g/dL Red Cell Distribution Width 13.3 11.0-15.5 % Platelet Count 199 130-400 K/uL Mean Platelet Volume 9.2 7.5-10.5 fL Immature Granulocyte % (Auto) 0.4 0-1 % Neutrophils (%) (Auto) 75.2 40.0-77.0 % Lymphocytes (%) (Auto) 15.9 L 21.0-51.0 % Monocytes (%) (Auto) 6.5 3.0-13.0 % Eosinophils (%) (Auto) 1.5 0.0-8.0 % Basophils (%) (Auto) 0.5 0.0-5.0 % Neutrophils # (Auto) 5.5 1.8-7.7 K/uL Lymphocytes # (Auto) 1.2 1.0-4.8 K/uL Monocytes # (Auto) 0.5 0.1-1.0 K/uL Eosinophils # (Auto) 0.11 0.00-0.70 K/uL Basophils # (Auto) 0.04 0.00-0.20 K/uL Absolute Immature Granulocyte (auto 0.03 0-1 K/uL Nucleated Red Blood Cells 0.0 0.0-0.19 % Sodium Level 138 136-145 mmol/L Potassium Level 3.6 3.5-5.1 mmol/L Chloride Level 105 101-111 mmol/L Carbon Dioxide Level 22 21-32 mmol/L Blood Urea Nitrogen 12 7-18 mg/dL Creatinine 1.0 0.5-1.3 mg/dL Glomerular Filtration Rate Calc 76 >90 mL/min Random Glucose 133 H 70-105 mg/dL Lactic Acid Level 1.7 0.8-2.5 mmol/L Total Calcium 8.6 8.5-10.1 mg/dL Total Bilirubin 2.7 H 0.2-1.0 mg/dL Aspartate Amino Transf (AST/SGOT) 38 H 10-37 U/L Alanine Aminotransferase (ALT/SGPT) 15 12-78 U/L Alkaline Phosphatase 64 50-136 U/L Total Protein 6.3 6.0-8.3 g/dL Albumin 3.4 L 3.5-5.0 g/dL Current Medications Medications (Trade) Dose Ordered Sig/Rere Route PRN Reason Start Time Stop Time Status Last Admin Dose Admin Acetaminophen (TYLenol 500MG TAB) 500 mg Q6H PRN PO MILD PAIN (1-3) 05/11/24 15:30 06/10/24 15:29 05/14/24 10:46 500 MG Albuterol (DUOneb) 1 UDVIAL Q6H PRN IH SHORTNESS OF BREATH 05/11/24 15:30 06/10/24 15:29 Aspirin (Aspirin 81mg Chew Tab) 81 mg DAILY PO 05/14/24 09:00 06/13/24 08:59 05/14/24 08:38 81 MG Azithromycin 250 ml @ 250 mls/hr Q24H IVPB 05/11/24 13:30 05/11/24 13:39 DC Ceftriaxone Sodium (Rocephin 2gm Inj) 2 gm Q24H IVPB 05/12/24 09:00 05/14/24 15:09 DC 05/14/24 08:37 2 GM Clopidogrel Bisulfate (plaVIX 75MG) 75 mg DAILY PO 05/15/24 09:00 06/14/24 08:59 Doxycycline Hyclate 250 ml @ 125 mls/hr Q12H IV 05/12/24 03:00 05/14/24 15:09 DC 05/14/24 03:10 125 MLS/HR Doxycycline Hyclate (Doxycycline Hyclate) 100 mg BID PO 05/14/24 21:00 05/21/24 20:59 Enoxaparin Sodium (Lovenox) 40 mg DAILY SQ 05/13/24 14:30 06/12/24 14:29 05/14/24 08:38 40 MG Famotidine (Pepcid 20mg Vial) 20 mg Q24H IV 05/11/24 21:00 06/10/24 20:59 05/13/24 20:26 20 MG Guaifenesin (RobiTUSSin SUGAR-FREE 100 MG/ 5 ML UDCUP) 200 mg Q4H PRN PO COUGH 05/12/24 03:00 06/11/24 02:59 Haloperidol Lactate (Haldol Inj) 1 mg ONCE IM 05/11/24 17:30 05/11/24 23:30 DC 05/11/24 17:27 1 MG Haloperidol Lactate (Haldol Inj) 4 mg ONCE IM 05/12/24 17:55 05/12/24 23:31 DC 05/12/24 21:36 4 MG Home Med (Home Medication) Escitalopram Oxalate 1 TAB DAILY PO 05/15/24 09:00 06/14/24 08:59 Hydralazine HCl (APRESOLine 20MG INJ) 10 mg Q6H PRN IV ADMINISTER FOR SBP > 160 05/12/24 16:30 06/11/24 16:29 05/14/24 05:14 10 MG Insulin Human Regular (humuLIN R 100 UNIT/ML 3ML) INSULIN SLIDING SCAL... ACHS SQ 05/12/24 07:30 06/11/24 07:29 Lorazepam (AtiVAN) 0.25 mg Q4H PRN IVP ANXIETY/AGITATION 05/14/24 13:30 05/21/24 13:29 Memantine (NAmenDA 5 MG TAB) 5 mg DAILY PO 05/15/24 09:00 06/14/24 08:59 Metoprolol Tartrate (loprESSOR) 25 mg BID PO 05/11/24 21:00 06/10/24 20:59 05/14/24 08:37 25 MG Sodium Chloride 1,000 ml @ 75 mls/hr [id number] IV 05/11/24 15:30 06/10/24 15:29 05/14/24 08:39 75 MLS/HR DIAGNOSTICS / RADIOLOGY: [ ] ASSESSMENT: AMS secondary to infectious versus metabolic encephalopathy, POA, resolved Dementia, POA Sundowning, associated with dementia Possible sepsis, ruled out Lactic acidosis, POA, improved Community-acquired pneumonia, resolved Respiratory alkalosis,improved Medical noncompliance, POA History of atrial fibrillation, not on any anticoagulation, POA [according to ] Hypertension, not on medications Hyperlipidemia, not on medications History of aneurysm History of Myocardial infarction, CABG x 6 in 2005 History of carotid artery stenosis, s/p left and right carotid endarterectomy, 2021 PLAN Continue monitoring vital signs every 4 hrs In reference to AMS with associated dementia. Patient seems to be at baseline at this time Discontinue IV antibiotics and start Doxycycline 100 mg BID, PO for atypical coverage In reference to respiratory alkalosis, repeat ABGs showed improvement. Patient currently saturating adequately on room air. Continue to monitor saturations closely maintain 92% or above. Continue PRN Duo Neb treatment Patient to continue on gentle hydration Continue on metoprolol 25 mg b.i.d. Will add Hydrochlorothiazide 25mg once daily for high blood pressure Continue DVT prophylaxis, Lovenox 40 mg SQ daily Continue Aspirin 81mg and Plavix daily Repeat labs tomorrow Pending Transfer acceptance to [place] Follow up with Cardiology consult outpatient in view of previous [place], CAD s/p CABG, high blood pressure MARGE AG MD May 14, 2024 15:23
[2024-05-14] MEDS: LORazepam 2 MG/ML 1 ML VIAL IVP PRN (16:18)
[2024-05-14] MEDS: ZIPRASIDONE MESYLATE 20 MG/VIAL IM ONE (18:39)
[2024-05-14] MEDS: queTIAPine fuMARate 25 MG TAB PO ONE (18:55)
[2024-05-14] MEDS: DOXYCYCLINE HYCLATE 100 MG TABLET PO SCH (21:31)
[2024-05-15] VITALS (11 sets, daily range): BP systolic 96–167; BP diastolic 61–137; PULSE 67–128; RESP 16–20; TEMP 97.8–98.6; O2SAT 96–100
[2024-05-15 04:06] LABS: BASOPHILS # (AUTO) 0.04 K/uL (0.00-0.20); BASOPHILS % (AUTO) 0.5 % (0.0-5.0); EOSINOPHILS % (AUTO) 1.1 % (0.0-8.0); HEMATOCRIT 49.3 % (42-54); IMMATURE GRANULOCYTE ABSOLUTE 0.03 K/uL (0-1); LYMPHOCYTES # (AUTO) 1.9 K/uL (1.0-4.8); LYMPHOCYTES % (AUTO) 22.2 % (21.0-51.0); MEAN CORPUSCULAR HEMOGLOBIN 29.8 pg (27.0-33.0); MEAN CORPUSCULAR HGB CONC 33.3 g/dL (32.0-36.0); MEAN CORPUSCULAR VOLUME 89.5 fL (79-99); MONOCYTES # (AUTO) 0.6 K/uL (0.1-1.0); MONOCYTES % (AUTO) 6.8 % (3.0-13.0); NEUTROPHILS % (AUTO) 69.1 % (40.0-77.0); PLATELET COUNT (AUTO) 220 K/uL (130-400); RED BLOOD CELL COUNT(AUTO) 5.51 MIL/uL (4.50-6.20); RED CELL DISTRIBUTION WIDTH 13.4 % (11.0-15.5); WHITE BLOOD COUNT (AUTO) 8.7 K/uL (4.8-10.8)
[2024-05-15 04:23] LABS: BILIRUBIN,TOTAL 2.7 mg/dL (0.2-1.0); CREATININE 1.1 mg/dL (0.5-1.3); MAGNESIUM 1.9 mg/dL (1.80-2.40); POTASSIUM 3.7 mmol/L (3.5-5.1); TOTAL PROTEIN, SERUM 7.7 g/dL (6.0-8.3)
[2024-05-15] MEDS: ESCITALOPRAM OXALATE PO SCH (09:00)
[2024-05-15] MEDS: LoSARTan 25 MG TABLET PO SCH (09:00)
[2024-05-15] MEDS: MEMANtine HCL 5 MG TABLET PO SCH (09:00)
[2024-05-15] MEDS: cloPIDOgrel 75MG TAB PO SCH (09:00)
[2024-05-15] MEDS: LACTULOSE 20 GM/30 ML UDCUP PO SCH (10:38)
--- NOTE | 2024-05-15 11:32 | EKG ---
[facility] Test Date: 2024-05-15 Test Time: 09:39:58 Pat Name: NAVI LANDAVERDE Department: [facility] Room: 426 1 Gender: M Septic Technician: [id number] : 1945 Requested By: MARGE AG Order Number: [id number] Reading MD: Rubin Abdul Measurements Intervals Tamiment Rate: 109 P: 0 WV: 0 QRS: -11 QRSD: 92 T: 81 QT: 376 QTc: 506 Interpretive Statements atrial flutter Inferior infarct , age undetermined Compared to ECG 05/11/2024 10:47:05 Myocardial infarct finding now present Atrial flutter no longer present AV block, advanced (high-grade) no longer present ST (T wave) deviation no longer present Electronically Signed On 05-17-2024 18:32:18 BRIQUETTE OPERATOR by Rubin Abdul Please click the below link to view image of tracing.
--- NOTE | 2024-05-15 15:29 | PN ---
[facility] PROGRESS NOTE Date of Service: May 15, 2024 Time of Service: 15:22 SUBJECTIVE: Follow up visit for 79-year-old male admitted to hospital community-acquired pneumonia, metabolic encephalopathy, respiratory alkalosis. Patient remains on IV Rocephin and doxycycline. Patient is being followed by pulmonology services. Patient is saturating adequately on room air. ABGs from this morning showing pH of 7.4, pCO2 of 34, PO2 of 95. Patient also with concerns for progressively worsened dementia over the past months. is at bedside stating approximately one year ago patient discontinued all his medications despite recommendations from PCP and his primary speech pathologist assistant. 05/13 patient is seen at the bedside. He is awake and slightly confused. He is oriented to place but not to time. Patient denies difficulty in breathing, headaches, chest pain, palpitations, abdominal pain. His productive cough episodes have subsided. Vitals temperature 99, pulse rate 92, respiratory rate 18, blood pressure 104/66, SpO2 95% on room air. Last night, he was agitated and was given 1 dose of Haldol. Preliminary blood culture, urine culture, nasal screen for MRSA results came back negative. Bilateral venous Doppler results came back negative. 2D echo resulted in left ventricular ejection fraction of 45-50% and stage II diastolic dysfunction. Yesterday labs showed no remarkable results. Patient's refused MRI brain. As per , patient has stopped taking all his home medications approximately 1 yr back. 05/14 Patient is seen at the bedside. He is awake, slightly confused, disoriented to place and time. Patient denies headache, dizziness, shortness of breath, palpitations, chest pain, cough, abdominal pain, diarrhea. Vitals temperature 98.2, pulse 61, respiratory rate 17 , blood pressure 137/97, SpO2 97% on room air. No acute events last night. Labs CBC, CMP are unremarkable. Lactic acid levels are normal 1.7. Blood culture results remain negative. [facility]ending transfer to [facility] [place] [facility]. 05/15 Patient is seen at the bedside with present in the room.He is awake, mildly confused, oriented to person but not place or time. He appears calm and in a good mood. Vital signs temperature 98.6, pulse rate 100, respiratory rate 20, blood pressure 141/80, SpO2 97% on room air. CBC, BMP lab results are unremarkable and blood culture results after 4 days remain negative. He denies headache, dizziness, shortness of breath, cough palpitations, chest pain. He experienced an episode of anxiety and aggression last night for which a dose of antipsychotic was administered and he subsequently calmed down. Today patients declined all medications including blood pressure medications, Plavix, memantine, escitalopram home medications, DVT prophylaxis and gave permission only for doxycycline, aspirin, famotidine, IV fluids explaining that patient had previously expressed a wish not be on any medications. Attempted to educate her on the importance of blood pressure medications and Plavix especially in his case but she remained unwilling to proceed further. A repeat EKG no longer shows atrial flutter, AV block, indicates an old inferior infarct age undetermined.The patient has been accepted for group home placement and is scheduled for discharge tomorrow REVIEW OF SYSTEMS CONSTITUTIONAL: Denies fevers, or night sweats. No unintentional weight loss reported. Positive for chills NEUROLOGICAL: Denies headache, amaurosis fugax, motor weakness, sensory de ficit, vertigo/spinning sensation, gait abnormalities, or tremors. ENT: No hearing loss, otalgia, otorrhea, rhinitis, rhinorrhea, hoarseness, or sore throat. CARDIOVASCULAR: Denies any exertional angina, dyspnea on exertion, orthopnea, paroxysmal nocturnal dyspnea, palpitations, life-threatening arrhythmias, claudication. PULMONARY: Negative for shortness of breath, cough, sputum production SLEEP: Denies morning headaches, daytime somnolence or napping. Denies difficulty falling asleep, staying asleep, waking from sleep. Denies knowledge of snoring. GASTROINTESTINAL: Negative for abdominal pain. Denied any nausea, vomiting, melena, hematochezia, hematemesis. GENITOURINARY: Denies frequency, urgency, nocturia, hematuria or incontinence (Storage/Irritative symptoms.) Low urinary stream, straining to void, urinary intermittency or hesitancy, splitting of the voiding stream, terminal dribbling. ENDOCRINOLOGIC: Denies polyuria, polydipsia, polyphagia or heat/cold intolerances. HEMATOLOGIC: Denies thrombophilia/previous clots, or coagulopathy/bleeding disorders. ONCOLOGIC: Denies personal history of malignancy. DERMATOLOGIC: Denies rashes or pruritus. PSYCHIATRIC: Denies any suicidal or homicidal ideation. Denies hallucinations. PHYSICAL EXAM GENERAL APPEARANCE: The patient is awake, mildly confused, in no acute cardiopulmonary distress. NEUROLOGICAL: Cranial nerves II-XII grossly intact. Motor is 5/5 in bilateral upper and lower extremities proximal to distal. No sensory deficits. HEENT: Face is symmetric. Pupils are equal and reactive. Extraocular movements are intact. NECK: Supple. No JVD. No thyromegaly. No submental, submandibular, pre- /postauricular, occipital or supraclavicular lymphadenopathy. CHEST: Normal chest expansion. No Telemetry. LUNGS: Absence of any rales, rhonchi or any wheezing. CARDIOVASCULAR: Regular. S1 and S2 normal. No appreciable rubs, murmurs or gallops. ABDOMEN: Soft, nontender, and nondistended. There is no rebound, voluntary guarding, or rigidity. : Deferred. No Greene. EXTREMITIES: Non-edematous and not cyanotic. No clubbing. Good capillary refill. SKIN: No skin breakdown. Vital Signs (last 8hr) Date Time Temp Pulse Resp B/P (MAP) Pulse Ox O2 Delivery O2 Flow Rate FiO2 05/15/24 11:57 98.4 96 20 154/88 100 Room Air 05/15/24 11:42 89 18 N/A Room Air 21 05/15/24 08:10 96 Room Air* 0 21 05/15/24 08:00 98.6 100 20 141/80 96 Room Air LABS: Laboratory: Test 05/15/24 11:29 05/15/24 03:43 05/14/24 04:51 Range/Units Whole Blood Glucose 139 H 70-110 MG/DL White Blood Count 8.7 4.8-10.8 K/uL Red Blood Count 5.51 4.50-6.20 MIL/uL Hemoglobin 16.4 14.0-18.0 g/dL Hematocrit 49.3 42-54 % Mean Corpuscular Volume 89.5 79-99 fL Mean Corpuscular Hemoglobin 29.8 27.0-33.0 pg Mean Corpuscular Hemoglobin Concent 33.3 32.0-36.0 g/dL Red Cell Distribution Width 13.4 11.0-15.5 % Platelet Count 220 130-400 K/uL Mean Platelet Volume 9.4 7.5-10.5 fL Immature Granulocyte % (Auto) 0.3 0-1 % Neutrophils (%) (Auto) 69.1 40.0-77.0 % Lymphocytes (%) (Auto) 22.2 21.0-51.0 % Monocytes (%) (Auto) 6.8 3.0-13.0 % Eosinophils (%) (Auto) 1.1 0.0-8.0 % Basophils (%) (Auto) 0.5 0.0-5.0 % Neutrophils # (Auto) 6.0 1.8-7.7 K/uL Lymphocytes # (Auto) 1.9 1.0-4.8 K/uL Monocytes # (Auto) 0.6 0.1-1.0 K/uL Eosinophils # (Auto) 0.10 0.00-0.70 K/uL Basophils # (Auto) 0.04 0.00-0.20 K/uL Absolute Immature Granulocyte (auto 0.03 0-1 K/uL Nucleated Red Blood Cells 0.0 0.0-0.19 % Sodium Level 139 136-145 mmol/L Potassium Level 3.7 3.5-5.1 mmol/L Chloride Level 103 101-111 mmol/L Carbon Dioxide Level 26 21-32 mmol/L Blood Urea Nitrogen 13 7-18 mg/dL Creatinine 1.1 0.5-1.3 mg/dL Glomerular Filtration Rate Calc 67 >90 mL/min Random Glucose 130 H 70-105 mg/dL Total Calcium 9.3 8.5-10.1 mg/dL Magnesium Level 1.90 1.80-2.40 mg/dL Total Bilirubin 2.7 H 0.2-1.0 mg/dL Aspartate Amino Transf (AST/SGOT) 46 H 10-37 U/L Alanine Aminotransferase (ALT/SGPT) 23 # 12-78 U/L Alkaline Phosphatase 75 50-136 U/L Total Protein 7.7 # 6.0-8.3 g/dL Albumin 4.0 3.5-5.0 g/dL Lactic Acid Level 1.7 0.8-2.5 mmol/L Current Medications Medications (Trade) Dose Ordered Sig/Rere Route PRN Reason Start Time Stop Time Status Last Admin Dose Admin Acetaminophen (TYLenol 500MG TAB) 500 mg Q6H PRN PO MILD PAIN (1-3) 05/11/24 15:30 06/10/24 15:29 05/14/24 10:46 500 MG Albuterol (DUOneb) 1 UDVIAL Q6H PRN IH SHORTNESS OF BREATH 05/11/24 15:30 06/10/24 15:29 Aspirin (Aspirin 81mg Chew Tab) 81 mg DAILY PO 05/14/24 09:00 06/13/24 08:59 05/15/24 10:12 81 MG Azithromycin 250 ml @ 250 mls/hr Q24H IVPB 05/11/24 13:30 05/11/24 13:39 DC Ceftriaxone Sodium (Rocephin 2gm Inj) 2 gm Q24H IVPB 05/12/24 09:00 05/14/24 15:09 DC 05/14/24 08:37 2 GM Clopidogrel Bisulfate (plaVIX 75MG) 75 mg DAILY PO 05/15/24 09:00 06/14/24 08:59 Doxycycline Hyclate 250 ml @ 125 mls/hr Q12H IV 05/12/24 03:00 05/14/24 15:09 DC 05/14/24 03:10 125 MLS/HR Doxycycline Hyclate (Doxycycline Hyclate) 100 mg BID PO 05/14/24 21:00 05/21/24 20:59 05/15/24 10:12 100 MG Enoxaparin Sodium (Lovenox) 40 mg DAILY SQ 05/13/24 14:30 06/12/24 14:29 05/14/24 08:38 40 MG Famotidine (Pepcid 20mg Vial) 20 mg Q24H IV 05/11/24 21:00 06/10/24 20:59 05/14/24 21:31 20 MG Guaifenesin (RobiTUSSin SUGAR-FREE 100 MG/ 5 ML UDCUP) 200 mg Q4H PRN PO COUGH 05/12/24 03:00 06/11/24 02:59 Haloperidol Lactate (Haldol Inj) 1 mg ONCE IM 05/11/24 17:30 05/11/24 23:30 DC 05/11/24 17:27 1 MG Haloperidol Lactate (Haldol Inj) 4 mg ONCE IM 05/12/24 17:55 05/12/24 23:31 DC 05/12/24 21:36 4 MG Home Med (Home Medication) Escitalopram Oxalate 1 TAB DAILY PO 05/15/24 09:00 06/14/24 08:59 Hydralazine HCl (APRESOLine 20MG INJ) 10 mg Q6H PRN IV ADMINISTER FOR SBP > 160 05/12/24 16:30 06/11/24 16:29 05/15/24 03:38 10 MG Insulin Human Regular (humuLIN R 100 UNIT/ML 3ML) INSULIN SLIDING SCAL... ACHS SQ 05/12/24 07:30 06/11/24 07:29 Lactulose (Constulose 20gm/ 30ml Udcup) 20 gm BID PO 05/15/24 10:10 06/14/24 10:09 05/15/24 10:38 20 GM Lorazepam (AtiVAN) 0.25 mg Q4H PRN IVP ANXIETY/AGITATION 05/14/24 13:30 05/14/24 18:56 DC 05/14/24 16:18 0.25 MG Losartan Potassium (CozAAR 25MG TAB) 25 mg DAILY PO 05/15/24 09:00 06/14/24 08:59 Memantine (NAmenDA 5 MG TAB) 5 mg DAILY PO 05/15/24 09:00 06/14/24 08:59 Metoprolol Tartrate (loprESSOR) 25 mg BID PO 05/11/24 21:00 06/10/24 20:59 05/14/24 21:31 25 MG Sodium Chloride 1,000 ml @ 75 mls/hr [id number] IV 05/11/24 15:30 06/10/24 15:29 05/15/24 12:28 75 MLS/HR DIAGNOSTICS / RADIOLOGY: [ ] ASSESSMENT: AMS secondary to infectious versus metabolic encephalopathy, POA Dementia, POA Delirium, in the evening Possible sepsis, ruled out Lactic acidosis, POA, improved Community-acquired pneumonia, resolved Respiratory alkalosis,improved Medical noncompliance, POA History of atrial fibrillation, not on any anticoagulation, POA [according to ] Hypertension, not on medications Hyperlipidemia, not on medications History of aneurysm History of Myocardial infarction, CABG x 6 in 2005 History of carotid artery stenosis, s/p left and right carotid endarterectomy, 2021 PLAN: In reference to AMS with associated dementia. Patient seems to be at baseline at this time Continue Doxycycline 100 mg BID, PO for atypical coverage Patient currently saturating adequately on room air. Continue to monitor saturations closely maintain 92% or above. Continue PRN Duo Neb treatment Patient to continue on gentle hydration Patients denied Blood pressure medications metoprolol and losartan and plavix Continue GI prophylaxis, Continue Lovenox 40 mg SQ daily Continue Aspirin 81mg Repeat labs tomorrow Patient has been accepted for halfway placement Scheduled for discharge tomorrow Follow up with Cardiology consult outpatient in view of previous MT, CAD s/p CABG, high blood pressure Follow up with Psychiatry consult outpatient MARGE AG MD May 15, 2024 15:29
[2024-05-15] MEDS: ZIPRASIDONE MESYLATE 20 MG/VIAL IM ONE (19:06)
[2024-05-16] VITALS (7 sets, daily range): BP systolic 122–176; BP diastolic 68–95; PULSE 56–131; RESP 18–21; TEMP 97.1–98.3; O2SAT 100
[2024-05-16 04:57] LABS: BASOPHILS # (AUTO) 0.04 K/uL (0.00-0.20); BASOPHILS % (AUTO) 0.4 % (0.0-5.0); EOSINOPHILS # (AUTO) 0.05 K/uL (0.00-0.70); EOSINOPHILS % (AUTO) 0.5 % (0.0-8.0); HEMATOCRIT 44.5 % (42-54); IMMATURE GRANULOCYTE ABSOLUTE 0.03 K/uL (0-1); MEAN CORPUSCULAR HEMOGLOBIN 29.7 pg (27.0-33.0); MEAN CORPUSCULAR HGB CONC 33.3 g/dL (32.0-36.0); MEAN CORPUSCULAR VOLUME 89.2 fL (79-99); MONOCYTES # (AUTO) 0.7 K/uL (0.1-1.0); MONOCYTES % (AUTO) 7.2 % (3.0-13.0); NEUTROPHILS # (AUTO) 8.4 K/uL (1.8-7.7); NEUTROPHILS % (AUTO) 81.6 % (40.0-77.0); PLATELET COUNT (AUTO) 200 K/uL (130-400); RED BLOOD CELL COUNT(AUTO) 4.99 MIL/uL (4.50-6.20); RED CELL DISTRIBUTION WIDTH 13.5 % (11.0-15.5); WHITE BLOOD COUNT (AUTO) 10.3 K/uL (4.8-10.8)
[2024-05-16 05:09] LABS: MAGNESIUM 1.8 mg/dL (1.80-2.40); POTASSIUM 3.5 mmol/L (3.5-5.1)
[2024-05-16] MEDS: ALPRAZolam 0.5 MG TABLET PO ONE (05:47)
--- NOTE | 2024-05-16 09:59 | DS ---
Discharge Summary Hospital Course Summary: This is a 79-year-old male with a past medical history of dementia, atrial fibrillation, hypertension, hyperlipidemia [has not been on any medications for the past 1 yr, as per ], medication non compliance who was brought to the hospital with the complaints of shortness of breath, chills, mild diffuse abdominal pain and confusion. According to his , he was diagnosed with dementia more than a year ago and she has noted a gradual increase in confusion at home over the past 2-3 weeks. Additionally she has observed shortness of breath, along with cough and sputum production during this time. Patient was recently diagnosed with shingles around two weeks ago and completed acyclovir antibiotic treatment. Initial vitals showed elevated BP 165/106, RR 22, MS 120. Labs resulted in elevated lactic acid levels 3.5. BNP, TCK, Troponin, TSH,CRP, Procalcitonin levels are normal. Chest x ray resulted in no acute pulmonary infiltrates. EKG resulted in atrial flutter with 3-1 AV block. He is admitted for further workup and management. CT head resulted in no acute bleeding/findings.Tele neuro was consulted, who recommended MRI brain, but couldn't proceed further due to 's refusal. CT abdomen/pelvis resulted in distended gallbladder, multiple renal cysts mostly on the left and diverticulosis. Right upper quadrant ultrasound resulted in no acute findings and bilateral lower extremity Doppler was negative. Initial ABG resulted in respiratory alkalosis and labs showed elevated D-dimer, prompting pulmonology consult. CT chest PE results came back negative and his respiratory alkalosis resolved over the stay. He was started on doxycycline 100 mg IV b.i.d. and Rocephin 2 g IV for suspected pneumonia. Metoprolol 25 mg p.o. b.i.d. for his atrial flutter and tachycardia, IV hydralazine 10mg PRN, Cozaar 25mg PO for high BP, DVT, Afib and GI prophylaxis. Blood culture results, urine culture results came back negative. His shortness of breath, productive cough episodes, tachycardia have resolved and his mental status also reverted to baseline over the period of stay. He has experienced episodes associated with dementia during the stay, for which he received PRN antipsychotic medication. Yesterday, Patient's declined all medications gave permission only for doxycycline, aspirin, famotidine, IV fluids explaining that patient had previously expressed a wish not be on any medications. Attempt has been made to educate her on the importance of blood pressure medications and Plavix especially in his case but she remained unwilling to proceed further. A repeat EKG no longer showed atrial flutter, AV block, and indicated an old inferior infarct age undetermined. Today the patient is alert, awake and oriented to person. He is hemodynamically stable with vitals temperature 97.3, pulse rate 100, respiratory rate 20, blood pressure 141/71, SpO2 95% on room air. He is able to tolerate oral feeds, and is able to ambulate freely with PT assistance. He appears calm and is in a good mood. Labs CBC, CMP are unremarkable. Patient is being discharged to home today with new oral prescription of doxycycline 100 mg b.i.d. for 5 days, Cozaar 25 mg p.o. daily, metoprolol 25 mg p.o. b.i.d. Another attempt has been made to educate the patients on the importance of medication compliance but she remained persistent on her decision to avoid medications. According to , he was accepted for placement in [facility]. Patient's was advised to follow up with the PCP within1 week for further medication management and workup and cardiology consult outpatient within 1 week. Heater Engineer Helper(s): Tele neuro consult Dr. Paul Pulmonology consult Dr. Childress Procedure(s): PROCEDURE: HEAD WO - CT HEAD/BRAIN W/O CONTRAST CT HEAD/BRAIN W/O CONTRAST HISTORY: Altered mental status COMPARISON: None TECHNIQUE: Multiple sequential axial images of the head were obtained from the base of the skull through vertex. Patient was not given contrast through intravenous route. FINDINGS: The ventricles and extraventricular CSF spaces are dilated consistent with cerebral atrophy. Nonspecific white matter changes seen. There is no midline shift, mass effect or herniation. No acute intracranial bleed is seen. Visualized portion of the paranasal sinuses are grossly within normal limits. 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 IMPRESSION: 1. No acute intracranial bleed is seen. 2. Atrophy with white matter changes. PROCEDURE: CXR1VW - CHEST 1VW CHEST 1VW HISTORY: Shortness of breath COMPARISON: 12/04/2021 FINDINGS: A frontal projection of the chest was obtained. No acute pulmonary infiltrates is seen. Poststernotomy changes are seen. The heart is enlarged. Degenerative changes of the thoracolumbar spine are present. Aortic calcifications are seen. IMPRESSION: 1. No acute pulmonary infiltrate is seen. PROCEDURE: ABD PEL WO - CT ABDOMEN/PELVIS W/O CONTRAST CT ABDOMEN/PELVIS W/O CONTRAST HISTORY: Abdominal pain COMPARISON: None TECHNIQUE: Multiple sequential axial images of the abdomen and pelvis were obtained from the dome of the diaphragm through symphysis pubis. Patient was not given contrast through intravenous route. Oral contrast was not given. FINDINGS: No pleural effusion is seen bilaterally. There is no evidence of parenchymal disease or pulmonary nodule of the visualized lower lungs. Degenerative changes of the thoracolumbar spine are present. The heart is not enlarged. Liver is enlarged measuring 18 cm. Gallbladder is distended. There are multiple left renal cysts with the largest measuring 5 cm. The liver, spleen, adrenal glands and pancreas are unremarkable. There is no evidence of hydronephrosis bilaterally. No evidence of renal stone is seen. There is diverticulosis. Fecal material is seen in the colon. There is diverticulosis. There are normal size retroperitoneal and mesenteric lymph nodes. No ascites is seen. Atherosclerotic changes are present. Pelvic sidewalls are symmetric bilaterally. Bladder is poorly distended with wall thickening. IMPRESSION: 1. Distended gallbladder. Multiple renal cysts mostly on the left. Diverticulosis. PROCEDURE: ABDRUQLTD - US ABDOMINAL RUQ\LTD ULTRASOUND ABDOMEN LIMITED INDICATION: Right upper abdominal pain COMPARISON: None FINDINGS: The right hepatic lobe appears grossly normal without any focal lesion demonstrated. Left hepatic lobe is obscured by overlying bowel gas. Main portal vein is patent, and normal direction of vascular flow demonstrated. Common bile duct is obscured by overlying bowel gas. No evidence for calculi, sludge or pericholecystic fluid. No sonographic Zhang's sign elicited by the ultrasound lead press operator. Wall thickness measures 3.0 mm. Pancreas is obscured by overlying bowel gas. The right kidney measures 10.2 x 6.4 x 5.0 cm,and is normal in echogenicity, without evidence for hydronephrosis.No shadowing stones demonstrated. No free fluid demonstrated. IMPRESSION: Limitations as reported. No acute right upper abdominal abnormality noted within the limits of this exam. PROCEDURE: CHES PE - CT CHEST PE PROTOCOL WWO CONT CT CHEST PE PROTOCOL WWO CONT HISTORY: Elevated d-dimer COMPARISON: None TECHNIQUE: CT angiography of the chest was performed. The study was performed using angiographic technique with maximum intensity projection reconstruction images. Patient was given 100 cc of Omnipaque through intravenous route. FINDINGS: No CT evidence of filling defect is seen to suggest pulmonary embolus. No CT evidence of aortic dissection is seen. No evidence of parenchymal disease is seen. No CT evidence of pleural effusion or pericardial effusion is seen. The heart is enlarged. Coronary arterial calcifications are seen. No evidence of adrenal mass is seen. Degenerative changes of the spine are noted. Fatty changes of the liver are noted. Gallbladder is distended. There are left renal cysts with the largest measuring 4.3 cm. IMPRESSION: 1. No CT evidence of acute pulmonary embolus is seen. PROCEDURE: VENOUS YVETTE - US VENOUS DOPPLER BILATERAL ULTRASOUND VENOUS DOPPLER, BILATERAL LOWER EXTREMITIES INDICATION: Bilateral lower extremity pain and swelling TECHNIQUE: Routine grayscale and color Doppler ultrasound of the bilateral lower extremity veins performed. COMPARISON: No priors. FINDINGS: The demonstrated veins of the bilateral lower extremity including the common femoral vein, femoral vein, and popliteal vein are associated with normal compressibility, augmentation, and flow. Normal respiratory variation was identified. No evidence for echogenic intraluminal thrombus formation. IMPRESSION: No sonographic evidence for deep venous thrombosis within the bilateral lower extremity veins. ORDERING PHYSICIAN: ZAKI CANTU MD PROCEDURE: ECHO CMP - ECHO 2-D COMPLETE APPROVED REPORT EXAM: Two-dimensional and M-mode echocardiogram with Doppler and color Doppler. Study Details: A/fib .HTN , HLD ,Dementia INDICATION ICD: Atrial Fibrillation 2D Dimensions RVDd 3.4 cm LVEF(%) 93.6 (>50%) LVED Vol(simp.) 104.0 mL IVSd 1.5 (0.7-1.1cm) FS(%) 67 % LVES Vol(simp.) 51.4 mL LVDd 4.2 (3.8-5.6cm) LA (2D) 3.6 (1.6-4.0cm) LVEF(%, simp.) 51 % PWd 1.1 (0.7-1.1cm) Ao Root(2D) 3.6 (2.0-3.7cm) LA ESV INDEX (4CH) 27.90 mL/m2 IVSs 1.5 cm LVOT diam 2.0 (1.8-2.4cm) LA ESV INDEX (2CH) 21.10 mL/m2 LVDs 3.1 (2.5-4.0cm) LA ESV INDEX (BP) 25.20 mL/m2 PWs 1.4 cm Deformation Strain Apical 4 12.0 % Apical 2 15.0 % Apical 3 15.0 % Global Strain 14.0 % M-Mode Dimensions EPSS 1.7 cm LA (MM) 4.6 (1.6-4.0cm) Ao Root(MM) 4.0 (2.0-3.7cm) Aortic Valve AoV VTI 0.6 m Ao Mean GR 19.0 mmHg LVOT VTI 0.14 m FANNY (VMAX) 0.8 cm2 FANNY (VTI) 0.8 cm2 Mitral Valve MV E Vmax 154.8 cm/s DECEL Time 109 ms MV A Vmax 68.4 cm/s P 1/2 T 31 ms E/A ratio 2.3 MVA (PHT) 7.1 cm2 TDI E/E' Medial 34.4 E/E' Lateral 15.0 Medial E' Peak V 4.50 cm/s Lateral E' Peak V 10.30 cm/s Pulmonary Valve PV VTI 0.17 m PV Mean GR 2 mmHg Left Ventricle Left ventricular cavity size is normal. Mild concentric left ventricular hypertrophy. LVEF is 45-50%. Stage II diastolic dysfunction. Right Ventricle The right ventricle is normal size. The right ventricular systolic function is normal. Atria The left atrium is moderately dilated. The right atrium is mildly dilated. Aortic Valve Aortic valve is severely calcified. No aortic regurgitation is present. Moderate to severe aortic stenosis FANNY 0.8 cm2, MG 19 mm HG, PV 3 m/s. Mitral Valve Mitral valve leaflets have restricted excursion. Mild mitral annular calcification present. Mitral regurgitation is trace. There is no mitral valve stenosis. Tricuspid Valve The tricuspid valve leaflets appear normal. There is no tricuspid valve regurgitation noted. Pulmonic Valve Pulmonic valve is not well visualized. There is no pulmonic valvular regurgitation. Great Vessels The aortic root is normal in size. The ascending aorta is normal in size. The IVC is normal in size and collapses >50% with inspiration. Pericardium No pericardial effusion. Conclusion Left ventricular cavity size is normal. LVEF is 45-50%. Stage II diastolic dysfunction. The right ventricle is normal size. The right ventricular systolic function is normal. The left atrium is moderately dilated. The right atrium is mildly dilated. Aortic valve is severely calcified. No aortic regurgitation is present. Moderate to severe aortic stenosis FANNY 0.8 cm2, MG 19 mm HG, PV 3 m/s. No pericardial effusion. Assessment/Plan: ASSESSMENT: AMS secondary to infectious versus metabolic encephalopathy, POA, resolved Dementia, POA Sundowning, associated with dementia Possible sepsis, ruled out Lactic acidosis, POA, improved Community-acquired pneumonia, resolved Respiratory alkalosis,improved Medical noncompliance, POA History of atrial fibrillation, not on any anticoagulation, POA [according to ] Hypertension, not on medications Hyperlipidemia, not on medications History of aneurysm History of Myocardial infarction, CABG x 6 in 2005 History of carotid artery stenosis, s/p left and right carotid endarterectomy, 2021 PLAN ADMISSION DATE : 05/11/2024 DISCHARGE DATE : 05/16/2024 DISPOSITION : Home CONDITION : Stable Heater Engineer Helper(s) : Pulmonology consult Dr. Childress, tele neuro consult Dr. Paul FOLLOW UP APPOINTMENTS : With PCP within1 week, cardiology consult outpatient within 1 week PROCEDURES : None IMAGING (s) : CT head, CT chest PE protocol, CT abdomen/pelvis, right upper quadrant ultrasound, bilateral lower extremity Doppler, 2D echo MICROBIOLOGY : Blood culture results are negative ACTIVITY : [facility] HOME MEDICATIONS : All Home medications are reconciled except acyclovir NEW MEDICATIONS : New oral prescription of [id number] mg b.i.d. p.o. daily, Cozaar 25 mg p.o. daily, doxycycline 100 mg b.i.d. p.o. for 5 days TEACHING : Patient's is educated on importance of medication compliance,and on hypertension, atrial fibrillation, sundowning associated with dementia The patient was instructed to present to the nearest Emergency Department or call 911 should their symptoms return or worsen. Home Medications: Active Scripts Acyclovir (Acyclovir) 200 Mg Capsule, 200 MG PO 5X/DAY for 5 Days, #25 CAP Prov:KIMBERLEY TIRADO MD 04/24/24 Reported Medications Escitalopram Oxalate (Escitalopram Oxalate) 5 Mg Tablet, 1 TAB PO DAILY 05/14/24 Memantine HCl (Memantine HCl) 5 Mg Tablet, 1 TAB PO DAILY 05/14/24 Clopidogrel Bisulfate (Plavix) 75 Mg Tablet, 75 MG PO DAILY, TAB 12/04/21 Aspirin (Aspirin) 81 Mg Tab.chew, 81 MG PO DAILY, TAB.CHEW 10/13/21 Discontinued Reported Medications [Aricept] No Conflict Check, PO 12/04/21 [Zinc] No Conflict Check, PO DAILY 12/04/21 Pravastatin Sodium (Pravastatin Sodium) 40 Mg Tablet, 40 MG PO DAILY, TAB 12/04/21 Cyanocobalamin/FA/Pyridoxine (Folbee Tablet) 1 Each Tablet, 1 EACH PO DAILY, TAB 12/04/21 Turmeric Root Extract (Turmeric) 500 Mg Capsule, 500 MG PO DAILY, CAP 10/08/21 Discontinued Scripts Prednisone (Prednisone) 20 Mg Tablet, 20 MG PO DAILY for 5 Days, #5 TAB Prov:KIMBERLEY TIRADO MD 04/24/24 Time spent arranging discharge: 1-30 minutes ATTESTATION BY PHYSICIAN I have seen and examined the patient. I reviewed the documentation, medical de cision making, and treatment plan as noted by the resident above. I agree with the findings and plan of care. Roger Barrera MD, PRIYANKA MD May 16, 2024 09:59
[2024-05-16] MEDS ORDERED: DOXY100T2 PO (12:21)
[2024-05-16] MEDS ORDERED: METO25TA6 PO (12:21)
[2024-05-16] MEDS ORDERED: MEMA5TAB16 PO (12:21)
[2024-05-16] MEDS ORDERED: LOSA-417 PO (12:21)
[2024-05-16] MEDS ORDERED: ASPI-1197 PO (12:21)
== END 2024-05-16 16:00 | disposition home or self-care (01) | DRG 70 ==
LOC: EDH 10:49 → EDHIP 14:34 → 4CH 23:12 → 4DH 05-13 15:35
PROVIDERS: ADMIT Internal Medicine; ATTEND Internal Medicine
DX: G93.41 Metabolic encephalopathy (principal); J18.9 Pneumonia, unspecified organism; F03.911 Unspecified dementia, unspecified severity, with agitation; E87.4 Mixed disorder of acid-base balance; F03.94 Unspecified dementia, unspecified severity, with anxiety; I48.92 Unspecified atrial flutter; Z20.822 Contact with and (suspected) exposure to COVID-19; E11.65 Type 2 diabetes mellitus with hyperglycemia; I10 Essential (primary) hypertension; K57.90 Diverticulosis of intestine, part unspecified, without perforation or abscess without bleeding; I48.91 Unspecified atrial fibrillation; B02.9 Zoster without complications; E78.00 Pure hypercholesterolemia, unspecified; I08.0 Rheumatic disorders of both mitral and aortic valves; N28.1 Cyst of kidney, acquired; Z79.899 Other long term (current) drug therapy; Z91.199 Patient's noncompliance with other medical treatment and regimen due to unspecified reason; I25.2 Old myocardial infarction; Z86.79 Personal history of other diseases of the circulatory system; Z95.1 Presence of aortocoronary bypass graft
CPT/HCPCS: 36415; 36600; 70450; 71045; 71270; 74176; 76705; 80048; 80053; 81001; 82435; 82550; 82803; 82947; 82948; 83036; 83605; 83735; 83880; 84132; 84145; 84295; 84443; 84484; 85018; 85025; 85378; 86140; 87040; 87086; 87426; 87641; 87804; 87880; 92610; 93005; 93306; 93356; 93970; 94640; 94664; 96365; 96366; 96367; 96372; 96375; G0378; J0360; J0456; J0696; J1630; J1650; J2060; J3486; J3490; J7030; Q9967